=== PATIENT | male | born 1945 | race Caucasian/White ===

== ENCOUNTER 2018-08-27 16:32 | Emergency (ER) | payer OTHER, MEDICAID ==
[~2018-08-27] VITALS: Ht 170.2 cm; Wt 69.6 kg
--- NOTE | 2018-08-27 16:35 | NUR ---
PT AMBULATES TO BED 9
[2018-08-27 16:40] VITALS: BP 178/90
--- NOTE | 2018-08-27 16:52 | NUR ---
Patient being evaluated by physician at bedside.
--- NOTE | 2018-08-27 16:54 | NUR ---
bib with c/o elevated blood pressure with dizziness and nausea today; given a htn pill from urgent care today. BP AT TIME OF TRIAGE 178/90. PT STATES HE DOES NOT FEEL WELL.
[2018-08-27] MEDS ORDERED: ONDANSETRON 4 MG/2 ML VIAL IVP ONE (17:00)
[2018-08-27] MEDS ORDERED: FAMOTIDINE 20 MG/2 ML VIAL IVP ONE (17:00)
[2018-08-27] MEDS ORDERED: cloNIDine 0.1 MG TAB PO ONE (17:00)
[2018-08-27] MEDS ORDERED: LORazepam 1 MG TAB PO ONE (17:00)
[2018-08-27 17:54] LABS: BASOPHILS % (AUTO) 0.4 % (0.0-2.0); EOSINOPHILS # (AUTO) 0.1 K/uL (0-0.4); EOSINOPHILS % (AUTO) 0.8 % (0.0-4.0); HEMATOCRIT 41.4 % (36-52); HEMOGLOBIN 13.7 g/dL (12.0-18.0); LYMPHOCYTES # (AUTO) 1.5 K/uL (2.0-11.5); LYMPHOCYTES % (AUTO) 23.5 % (20.5-51.1); MEAN CORPUSCULAR HEMOGLOBIN 31 pg (27-31); MEAN CORPUSCULAR HGB CONC 33 g/dL (33-37); MONOCYTES # (AUTO) 0.5 K/uL (0.8-1.0); MONOCYTES % (AUTO) 8.3 % (1.7-9.3); NEUTROPHILS # (AUTO) 4.4 K/uL (1.8-7.7); PLATELET COUNT (AUTO) 267 K/uL (140-450); RED BLOOD CELL COUNT(AUTO) 4.45 MIL/uL (4.20-6.10); WHITE BLOOD COUNT (AUTO) 6.5 K/uL (4.8-10.8)
[2018-08-27 18:01] LABS: APPEARANCE,URINE CLEAR (CLEAR); BILIRUBIN,URINE NEGATIVE (NEGATIVE); BLOOD, URINE TRACE-L (NEGATIVE); COLOR,URINE YELLOW (YELLOW); LEUKOCYTE ESTERASE ,URINE NEGATIVE (NEGATIVE); NITRITE, URINE NEGATIVE (NEGATIVE); PH,URINE 7.5 (5.0-9.0); UGLUCOSE NEGATIVE (NEGATIVE)
[2018-08-27 18:04] LABS: RBC,URINE 0-5 (RARE) /HPF (0-5); WBC,URINE NONE SEEN /HPF (0-5)
[2018-08-27 18:13] LABS: ALBUMIN 3.9 g/dL (3.4-5.0); ANION GAP 13.4 (8-16); ASPARTATE AMINOTRANSFERASE 24 U/L (15-37); CARBON DIOXIDE 25.4 mmol/L (21-32); CHLORIDE 103 mmol/L (98-107); CREATININE 0.8 mg/dL (0.7-1.3); GLUCOSE 99 mg/dL (74-106); POTASSIUM 3.8 mmol/L (3.5-5.1); SODIUM SERUM 138 mmol/L (136-145); TOTAL BILIRUBIN 0.7 mg/dL (0.0-1.0); UREA NITROGEN, BLOOD 9 mg/dL (7-18)
[2018-08-27 18:20] LABS: AMYLASE 58 U/L (25-115); LIPASE 194 U/L (73-393)
[2018-08-27 18:50] LABS: PROTHROMBIN TIME 11.1 secs (10.8-13.4)
[2018-08-27 19:10] VITALS: BP 93/48
--- NOTE | 2018-08-27 19:10 | NUR ---
Patient discharged with v/s stable. Written and verbal after care instructions given and explained. Patient alert, oriented and verbalized understanding of instructions. Ambulatory with steady gait. All questions addressed prior to discharge. ID band removed. Patient advised to follow up with PMD. Rx of clonidine given. Patient educated on indication of medication including possible reaction and side effects. Opportunity to ask questions provided and answered.
== END 2018-08-27 19:10 | disposition home or self-care (01) ==
LOC: MED 16:32
DX: I10 Essential (primary) hypertension (principal); G20 Parkinson's disease
CPT/HCPCS: 36415; 71045; 80053; 81001; 82150; 83690; 83880; 84484; 85025; 85610; 85730; 93005; 96374; 96375; 99284; J2405; J3490; Q0092

== ENCOUNTER 2018-11-09 07:36 | Emergency (ER) | payer OTHER, MEDICAID ==
[~2018-11-09] VITALS: Ht 172.7 cm; Wt 68.0 kg
[2018-11-09 07:45] VITALS: BP 164/80
--- NOTE | 2018-11-09 07:54 | NUR ---
PATIENT PRESENTS TO ED WITH ACCOMPANIED BY C/O GENERALIZED WEAKNESS, NAUSEA, AND DIZZINESS X 1 WK DENIES RECENT INJURY, FULL CLEAR SPEECH, AMBULATORY WITH STEADY GAIT, NO FACIAL ASYMMETRY NOTED, DENIES ABDOMINAL PAIN OR DIARRHEA AT THIS TIME. SKIN IS PINK/WARM/DRY; AAOX4 WITH EVEN AND STEADY GAIT; LUNGS CLEAR BL; HR EVEN AND REGULAR; PT DENIES ANY FEVER, CP, SOB, OR COUGH AT THIS TIME; PATIENT STATES PAIN OF 0/10 AT THIS TIME; VSS; PATIENT POSITIONED FOR COMFORT; HOB ELEVATED; BEDRAILS UP X2; BED DOWN. ER MD MADE AWARE OF PT STATUS.
--- NOTE | 2018-11-09 08:06 | NUR ---
CXR AT BEDSIDE
[2018-11-09 08:32] LABS: BASOPHILS % (AUTO) 0.3 % (0.0-2.0); EOSINOPHILS # (AUTO) 0.1 K/uL (0-0.4); EOSINOPHILS % (AUTO) 0.8 % (0.0-4.0); HEMATOCRIT 41.5 % (36-52); LYMPHOCYTES # (AUTO) 1.3 K/uL (2.0-11.5); LYMPHOCYTES % (AUTO) 17.5 % (20.5-51.1); MEAN CORPUSCULAR HEMOGLOBIN 31 pg (27-31); MEAN CORPUSCULAR HGB CONC 34 g/dL (33-37); MEAN CORPUSCULAR VOLUME 93.2 fL (80-94); MONOCYTES # (AUTO) 0.5 K/uL (0.8-1.0); MONOCYTES % (AUTO) 7.3 % (1.7-9.3); NEUTROPHILS # (AUTO) 5.4 K/uL (1.8-7.7); NEUTROPHILS % (AUTO) 74.1 % (42.2-75.2); PLATELET COUNT (AUTO) 257 K/uL (140-450); RED BLOOD CELL COUNT(AUTO) 4.46 MIL/uL (4.20-6.10); WHITE BLOOD COUNT (AUTO) 7.3 K/uL (4.8-10.8)
[2018-11-09 08:50] LABS: APPEARANCE,URINE SL CLOUDY (CLEAR); BILIRUBIN,URINE NEGATIVE (NEGATIVE); BLOOD, URINE TRACE-I (NEGATIVE); COLOR,URINE YELLOW (YELLOW); LEUKOCYTE ESTERASE ,URINE NEGATIVE (NEGATIVE); NITRITE, URINE NEGATIVE (NEGATIVE); PH,URINE 6.5 (5.0-9.0); UGLUCOSE NEGATIVE (NEGATIVE)
[2018-11-09 08:56] LABS: CARBON DIOXIDE 27.6 mmol/L (21-32); CHLORIDE 103 mmol/L (98-107); CREATININE 0.9 mg/dL (0.7-1.3); GLUCOSE 122 mg/dL (74-106); POTASSIUM 3.6 mmol/L (3.5-5.1); SODIUM SERUM 138 mmol/L (136-145); UREA NITROGEN, BLOOD 9 mg/dL (7-18)
[2018-11-09 08:58] LABS: RBC,URINE 0-5 /HPF (0-5); WBC,URINE 0-5 /HPF (0-5)
[2018-11-09] MEDS ORDERED: LORazepam 1 MG TAB PO ONE (09:05)
[2018-11-09 09:12] LABS: ALBUMIN 3.7 g/dL (3.4-5.0); ASPARTATE AMINOTRANSFERASE 25 U/L (15-37); THYROID STIMULATING HORMONE 0.92 uIU/mL (0.34-3.74); TOTAL BILIRUBIN 0.6 mg/dL (0.0-1.0)
[2018-11-09 09:53] VITALS: BP 149/82
== END 2018-11-09 09:58 | disposition home or self-care (01) ==
LOC: MED 07:36
DX: R53.1 Weakness (principal); F41.9 Anxiety disorder, unspecified; F32.9 Major depressive disorder, single episode, unspecified; K21.9 Gastro-esophageal reflux disease without esophagitis; I10 Essential (primary) hypertension; N40.0 Benign prostatic hyperplasia without lower urinary tract symptoms; G20 Parkinson's disease; Z98.890 Other specified postprocedural states
CPT/HCPCS: 36415; 71045; 80053; 81001; 84443; 84484; 85025; 93005; 99284; Q0092

== ENCOUNTER 2019-01-15 21:05 | Emergency (ER) | payer OTHER, MEDICAID ==
[~2019-01-15] VITALS: Ht 170.2 cm; Wt 71.7 kg
[2019-01-15 21:08] VITALS: BP 160/87
--- NOTE | 2019-01-15 21:13 | NUR ---
Pt taken to bed 11. Report given to Amna ROJAS.
--- NOTE | 2019-01-15 21:25 | NUR ---
PT BIB C/O GENERALIZED WEAKNESS X2 DAY. PT STATES HE HASNT BEEN FEELING HIMSELF AND FELT WORSE TODAY. DENIES N/V/D; FREQUENT URINATION PATTERN, PT STATES ~50 TIMES TODAY. PT STATES 0/10 PAIN AT THIS TIME. PT ACTING APPROPRIATLY, SPEAKING IN CLEAR AND COMPLETE SENTENCES. PENDING ER MD JIANG. PMH: PROSTATE SX 05/25
--- NOTE | 2019-01-15 22:26 | NUR ---
EKG PERFORMED AT BEDSIDE
[2019-01-15 22:27] LABS: BASOPHILS % (AUTO) 0.6 % (0.0-2.0); EOSINOPHILS # (AUTO) 0.2 K/uL (0-0.4); EOSINOPHILS % (AUTO) 2.8 % (0.0-4.0); HEMATOCRIT 38.5 % (36-52); HEMOGLOBIN 13.2 g/dL (12.0-18.0); LYMPHOCYTES # (AUTO) 1.7 K/uL (2.0-11.5); LYMPHOCYTES % (AUTO) 23.7 % (20.5-51.1); MEAN CORPUSCULAR HEMOGLOBIN 32 pg (27-31); MEAN CORPUSCULAR HGB CONC 34 g/dL (33-37); MEAN CORPUSCULAR VOLUME 93.5 fL (80-94); MONOCYTES # (AUTO) 0.7 K/uL (0.8-1.0); MONOCYTES % (AUTO) 9.4 % (1.7-9.3); NEUTROPHILS # (AUTO) 4.5 K/uL (1.8-7.7); NEUTROPHILS % (AUTO) 63.5 % (42.2-75.2); PLATELET COUNT (AUTO) 254 K/uL (140-450); RED BLOOD CELL COUNT(AUTO) 4.12 MIL/uL (4.20-6.10); RED CELL DISTRIBUTION WIDTH 13.1 % (11.6-13.7)
[2019-01-15 22:39] LABS: ANION GAP 15.5 (8-16); CARBON DIOXIDE 25.7 mmol/L (21-32); CHLORIDE 105 mmol/L (98-107); CREATININE 0.7 mg/dL (0.7-1.3); GLUCOSE 113 mg/dL (74-106); POTASSIUM 3.2 mmol/L (3.5-5.1); SODIUM SERUM 143 mmol/L (136-145); UREA NITROGEN, BLOOD 16 mg/dL (7-18)
[2019-01-15 22:45] LABS: ALBUMIN 3.5 g/dL (3.4-5.0); ASPARTATE AMINOTRANSFERASE 20 U/L (15-37); MAGNESIUM 2.1 mg/dL (1.8-2.4); TOTAL BILIRUBIN 0.6 mg/dL (0.0-1.0)
--- NOTE | 2019-01-15 23:35 | NUR ---
PT SISTER WOULD LIKE A UPDATE ON PT STATUS. ER AWARE.
--- NOTE | 2019-01-15 23:39 | NUR ---
DR. MARTINEZ AT BEDSIDE SPEAKING W/ PT ABOUT POSSIBLE PLACEMENT.
[2019-01-16 00:52] LABS: APPEARANCE,URINE CLEAR (CLEAR); BILIRUBIN,URINE NEGATIVE (NEGATIVE); BLOOD, URINE NEGATIVE (NEGATIVE); COLOR,URINE YELLOW (YELLOW); LEUKOCYTE ESTERASE ,URINE NEGATIVE (NEGATIVE); NITRITE, URINE NEGATIVE (NEGATIVE); UGLUCOSE NEGATIVE (NEGATIVE)
[2019-01-16] MEDS ORDERED: LORazepam 0.5 MG TAB PO ONE (01:05)
[2019-01-16] MEDS ORDERED: POTASSIUM CHLORIDE 10 MEQ TABER PO ONE (01:25)
--- NOTE | 2019-01-16 01:47 | NUR ---
Patient discharged with v/s stable. Patient acting appropriatly, patient states 0/10 pain at this time and states he is ready to go home. Written and verbal after care instructions given and explained. Patient verbalized understanding. Ambulatory with steady gait. All questions addressed prior to discharge. Advised to follow up with PMD.
[2019-01-16 01:59] VITALS: BP 158/78
== END 2019-01-16 01:59 | disposition home or self-care (01) ==
LOC: MED 21:05
DX: R53.1 Weakness (principal); F41.9 Anxiety disorder, unspecified; E87.6 Hypokalemia; I10 Essential (primary) hypertension; G20 Parkinson's disease
CPT/HCPCS: 36415; 71045; 80053; 81003; 83735; 84484; 85025; 93005; 99284

== ENCOUNTER 2019-01-18 15:16 | Emergency (ER) | payer OTHER, MEDICAID ==
[~2019-01-18] VITALS: Ht 165.1 cm; Wt 70.8 kg
[2019-01-18 15:23] VITALS: BP 153/92
[2019-01-18] MEDS ORDERED: CLON0.2T16 PO (15:30)
[2019-01-18] MEDS ORDERED: ALPR0.5T2 PO (15:30)
--- NOTE | 2019-01-18 15:35 | NUR ---
Note undone in EDM - 01/18/19 at 1610 by MED BIB SELF. AAO X4 C/O GENERALIZED WEAKNESS AND DIZZINESS X 4 DAYS, ANXIETY X 1 MONTH, SOB X 1 MONTH, NAUSEA X 1 MONTH. DENIES CP. DENIES PAIN. PT AA&OX4. BREATHING EVEN AND UNLABORED. EQUAL, CLEAR FADI LUNGS UPON AUSCULTATION. PT WAS SEEN HERE 4 DAYS AGO FOR SAME COMPLAINT. PT STATESS HE HAD LOW POTASSIUM 4 DAYS AGO. PERRLA, BRISK 3 MM. FULL CLEAR SPEECH. EQUAL FADI STRENGTH TO UPPER AND LOWER EXTREMITIES.
--- NOTE | 2019-01-18 15:35 | NUR ---
BIB SELF. AAO X4 C/O GENERALIZED WEAKNESS AND DIZZINESS X 4 DAYS, ANXIETY X 1 MONTH, SOB X 1 MONTH, NAUSEA X 1 MONTH. DENIES CP. DENIES PAIN. PT AA&OX4. BREATHING EVEN AND UNLABORED. EQUAL, CLEAR FADI LUNGS UPON AUSCULTATION. PT WAS SEEN HERE 4 DAYS AGO FOR SAME COMPLAINT. PT STATESS HE HAD LOW POTASSIUM 4 DAYS AGO. PERRLA, BRISK 3 MM. FULL CLEAR SPEECH. EQUAL FADI STRENGTH TO UPPER AND LOWER EXTREMITIES. PT PLACED ON FULL INSTALLER METAL FLOORING. HOB UP. BED SIDE RAILS UP X1. ON LOW BED POSITION, LOCKED. ER MADE AWARE OF PT STATUS.
--- NOTE | 2019-01-18 15:37 | NUR ---
DR WOOD AT BEDSIDE FOR PT EVALUATION
--- NOTE | 2019-01-18 15:45 | NUR ---
POULTRY PICKING MACHINE TENDER AT BEDSIDE
[2019-01-18 16:27] LABS: BASOPHILS # (AUTO) 0.1 K/uL (0.00-0.22); BASOPHILS % (AUTO) 0.9 % (0.0-2.0); EOSINOPHILS # (AUTO) 0.1 K/uL (0-0.4); EOSINOPHILS % (AUTO) 1.3 % (0.0-4.0); HEMATOCRIT 38.8 % (36-52); HEMOGLOBIN 12.8 g/dL (12.0-18.0); LYMPHOCYTES # (AUTO) 1.4 K/uL (2.0-11.5); LYMPHOCYTES % (AUTO) 23.2 % (20.5-51.1); MEAN CORPUSCULAR HEMOGLOBIN 31 pg (27-31); MEAN CORPUSCULAR HGB CONC 33 g/dL (33-37); MEAN CORPUSCULAR VOLUME 93.7 fL (80-94); MONOCYTES # (AUTO) 0.6 K/uL (0.8-1.0); NEUTROPHILS # (AUTO) 4.1 K/uL (1.8-7.7); NEUTROPHILS % (AUTO) 65.6 % (42.2-75.2); PLATELET COUNT (AUTO) 284 K/uL (140-450); RED BLOOD CELL COUNT(AUTO) 4.14 MIL/uL (4.20-6.10); RED CELL DISTRIBUTION WIDTH 13.1 % (11.6-13.7); WHITE BLOOD COUNT (AUTO) 6.2 K/uL (4.8-10.8)
[2019-01-18 16:34] LABS: APPEARANCE,URINE CLEAR (CLEAR); BILIRUBIN,URINE NEGATIVE (NEGATIVE); BLOOD, URINE TRACE-I (NEGATIVE); COLOR,URINE YELLOW (YELLOW); LEUKOCYTE ESTERASE ,URINE NEGATIVE (NEGATIVE); NITRITE, URINE NEGATIVE (NEGATIVE); UGLUCOSE NEGATIVE (NEGATIVE)
[2019-01-18 16:37] LABS: RBC,URINE 0 /HPF (0-5); WBC,URINE 0-5 /HPF (0-5)
[2019-01-18 17:08] LABS: ALBUMIN 3.6 g/dL (3.4-5.0); ASPARTATE AMINOTRANSFERASE 30 U/L (15-37); CARBON DIOXIDE 28.5 mmol/L (21-32); CREATININE 0.7 mg/dL (0.7-1.3); GLUCOSE 98 mg/dL (74-106); TOTAL BILIRUBIN 0.5 mg/dL (0.0-1.0); UREA NITROGEN, BLOOD 18 mg/dL (7-18)
[2019-01-18 17:12] LABS: ANION GAP 12.1 (8-16); CHLORIDE 104 mmol/L (98-107); POTASSIUM 3.6 mmol/L (3.5-5.1); SODIUM SERUM 141 mmol/L (136-145)
[2019-01-18 17:53] VITALS: BP 133/69
== END 2019-01-18 17:53 | disposition home or self-care (01) ==
LOC: MED 15:16
DX: R53.1 Weakness (principal); R42 Dizziness and giddiness; F41.9 Anxiety disorder, unspecified; I10 Essential (primary) hypertension; G20 Parkinson's disease; Z79.899 Other long term (current) drug therapy
CPT/HCPCS: 36415; 71045; 80053; 81001; 85025; 99284; Q0092; 93005

== ENCOUNTER 2019-06-05 12:56 | Emergency (ER) | payer OTHER, MEDICAID ==
[~2019-06-05] VITALS: Ht 167.6 cm; Wt 70.8 kg
[~2019-06-05 12:56] MED LIST: ALPR0.5T2 PO; CLON0.2T16 PO
[2019-06-05 13:04] VITALS: BP 141/92
[2019-06-05 14:09] VITALS: BP 141/92
== END 2019-06-05 14:10 | disposition home or self-care (01) ==
LOC: MED 12:56
DX: H11.32 Conjunctival hemorrhage, left eye (principal); I10 Essential (primary) hypertension; G20 Parkinson's disease; Z79.899 Other long term (current) drug therapy
CPT/HCPCS: 99281

== ENCOUNTER 2019-06-14 06:30 | Emergency (ER) | payer OTHER, MEDICAID ==
[~2019-06-14] VITALS: Ht 175.3 cm; Wt 74.8 kg
--- NOTE | 2019-06-14 06:39 | NUR ---
PT AMBULATED TO ER BED 11
[2019-06-14 06:40] VITALS: BP 152/87
--- NOTE | 2019-06-14 06:40 | NUR ---
74 YO MALE BIB FOR C/O L KNEE AND L HIP PAIN X 1 WEEK. PT DENIES TRAUMA OR FALLS. LIMITED ROM NOTED, AMB WITH STEADY GAIT. PT STATES PAIN 10/10 FROM L HIP RADIATING TO L KNEE. DENIES FEVER CHILLS. DENIES N/V/D. GURNEY LOCKED IN LOWEST POSITION. WILL CONTINUE TO OBSERVE. HX: PARKINSONS, GERD, HTN, ANXIETY MEDS: XANAX, PRAMPEXOLE, CLONIDINE AX: DENIES
[2019-06-14] MEDS ORDERED: KETOROLAC 60 MG/2 ML VIAL IM ONE (06:50)
--- NOTE | 2019-06-14 07:15 | NUR ---
RECEIVED REPORT FROM GLORIA ROJAS
[2019-06-14 07:19] VITALS: BP 152/87
--- NOTE | 2019-06-14 07:19 | NUR ---
Patient discharged BY DR DUNN with v/s stable. Written and verbal after care instructions given and explained. Patient alert, oriented and verbalized understanding of instructions. Ambulatory with steady gait. All questions addressed prior to discharge. ID band removed. Patient advised to follow up with PMD. Rx of NAPROSYN given. Patient educated on indication of medication including possible reaction and side effects. Opportunity to ask questions provided and answered.
== END 2019-06-14 07:19 | disposition home or self-care (01) ==
LOC: MED 06:30
DX: M54.32 Sciatica, left side (principal); K21.9 Gastro-esophageal reflux disease without esophagitis; I10 Essential (primary) hypertension; G20 Parkinson's disease; F41.9 Anxiety disorder, unspecified; Z79.899 Other long term (current) drug therapy
CPT/HCPCS: 96372; 99283; J1885

== ENCOUNTER 2020-01-03 15:34 | Emergency (ER) | payer OTHER, MEDICAID ==
[~2020-01-03] VITALS: Ht 170.2 cm; Wt 63.5 kg
[2020-01-03 15:56] VITALS: BP 107/72
--- NOTE | 2020-01-03 15:56 | NUR ---
74/M WITH CC: GENERALIZED WEAKNESS X 1 MONTH. STATES FATIGUE, POLYURIA X <1 WK. DENIES DYSURIA. DENIES F/C, DENIES CP, OR SOB, DIZZINESS. DENIES PAIN. CONNECTED TO BEDSIDE MONITOR. VSS. AOX4. AMBULATORY WITH SLOW STEADY GAIT. HX---PARKINSON'S, HTN, ANXIETY RX---MYRBETRIQ 25MG QD, LISINOPRIL 20MG QD, ALPRAZOLAM 1MG QD, CARBIDOPA/LEVODOPA 25-100MG QID, MIRAPEX 0.125MG TID, POTASSIUM CHLORIDE 15ML QAM
--- NOTE | 2020-01-03 16:01 | NUR ---
EMT AT BEDSIDE FOR EKG
--- NOTE | 2020-01-03 16:02 | NUR ---
EKG PERFORMED AT BEDSIDE
--- NOTE | 2020-01-03 16:03 | NUR ---
BUILDING EQUIPMENT OPERATOR AT BEDSIDE
[2020-01-03] MEDS ORDERED: POTA10TE30 PO (16:07)
[2020-01-03] MEDS ORDERED: LISI-420 PO (16:07)
[2020-01-03] MEDS ORDERED: CARB1TAB37 PO (16:07)
[2020-01-03] MEDS ORDERED: PRAM0.5T4 PO (16:07)
[2020-01-03] MEDS ORDERED: MIRA25TE PO (16:07)
--- NOTE | 2020-01-03 16:17 | NUR ---
DR BREWSTER EVALUATING PT AT BEDSIDE
[2020-01-03] MEDS ORDERED: NACL 0.9% 1,000 ML IV ONE (16:20)
[2020-01-03 17:02] LABS: BASOPHILS % (AUTO) 0.6 % (0.0-2.0); EOSINOPHILS # (AUTO) 0.2 K/uL (0-0.4); EOSINOPHILS % (AUTO) 2.8 % (0.0-4.0); HEMATOCRIT 38.8 % (36-52); HEMOGLOBIN 12.9 g/dL (12.0-18.0); LYMPHOCYTES # (AUTO) 1.4 K/uL (2.0-11.5); LYMPHOCYTES % (AUTO) 21.7 % (20.5-51.1); MEAN CORPUSCULAR HEMOGLOBIN 32 pg (27-31); MEAN CORPUSCULAR HGB CONC 33 g/dL (33-37); MEAN CORPUSCULAR VOLUME 95.4 fL (80-94); MONOCYTES # (AUTO) 0.6 K/uL (0.8-1.0); MONOCYTES % (AUTO) 9.2 % (1.7-9.3); NEUTROPHILS # (AUTO) 4.3 K/uL (1.8-7.7); NEUTROPHILS % (AUTO) 65.7 % (42.2-75.2); PLATELET COUNT (AUTO) 229 K/uL (140-450); RED BLOOD CELL COUNT(AUTO) 4.07 MIL/uL (4.20-6.10); RED CELL DISTRIBUTION WIDTH 12.8 % (11.6-13.7); WHITE BLOOD COUNT (AUTO) 6.5 K/uL (4.8-10.8)
[2020-01-03 17:28] LABS: PROTHROMBIN TIME 10.4 secs (10.8-13.4)
[2020-01-03 17:31] LABS: ALBUMIN 3.3 g/dL (3.4-5.0); ASPARTATE AMINOTRANSFERASE 22 U/L (15-37); CARBON DIOXIDE 23.5 mmol/L (21-32); CHLORIDE 105 mmol/L (98-107); CREATININE 0.9 mg/dL (0.6-1.3); GLUCOSE 109 mg/dL (74-106); POTASSIUM 3.5 mmol/L (3.5-5.1); SODIUM SERUM 139 mmol/L (136-145); TOTAL BILIRUBIN 0.4 mg/dL (0.0-1.0); UREA NITROGEN, BLOOD 11 mg/dL (7-18)
[2020-01-03 18:04] LABS: APPEARANCE,URINE CLEAR (CLEAR); BILIRUBIN,URINE NEGATIVE (NEGATIVE); BLOOD, URINE NEGATIVE (NEGATIVE); COLOR,URINE YELLOW (YELLOW); LEUKOCYTE ESTERASE ,URINE NEGATIVE (NEGATIVE); NITRITE, URINE NEGATIVE (NEGATIVE); PH,URINE 5.5 (5.0-9.0); UGLUCOSE NEGATIVE (NEGATIVE)
[2020-01-03 18:50] VITALS: BP 150/72
== END 2020-01-03 18:51 | disposition home or self-care (01) ==
LOC: MED 15:34
DX: R53.1 Weakness (principal); R35.0 Frequency of micturition; K21.9 Gastro-esophageal reflux disease without esophagitis; I10 Essential (primary) hypertension; G20 Parkinson's disease; F41.9 Anxiety disorder, unspecified; Z79.899 Other long term (current) drug therapy
CPT/HCPCS: 36415; 71045; 80053; 81003; 84484; 85025; 85610; 93005; 99285; J7030; Q0092

== ENCOUNTER 2020-07-13 21:53 | Emergency (ER) | payer OTHER, MEDICAID ==
[~2020-07-13] VITALS: Ht 170.2 cm; Wt 70.8 kg
[~2020-07-13 21:53] MED LIST changes: +CARB1TAB37 PO; +LISI-420 PO; +MIRA25TE PO; +POTA10TE30 PO; +PRAM0.5T4 PO
[2020-07-13 22:07] VITALS: BP 155/86
--- NOTE | 2020-07-13 22:10 | NUR ---
To ED bed 07
--- NOTE | 2020-07-13 22:20 | NUR ---
75 y/o male c/o dysuria x 4 hours. pt states pain upon urination. denies pain this time. lung sounds clear. abd soft non tender. pmhx: BPH, DM nka
--- NOTE | 2020-07-13 23:00 | NUR ---
DR BERNARD AT BEDSIDE EVALUATING PT
--- NOTE | 2020-07-13 23:15 | NUR ---
LAB AT BEDSIDE
[2020-07-13 23:30] LABS: BASOPHILS % (AUTO) 0.3 % (0.0-2.0); EOSINOPHILS # (AUTO) 0.2 K/uL (0-0.4); EOSINOPHILS % (AUTO) 2.1 % (0.0-4.0); HEMATOCRIT 39.2 % (36-52); LYMPHOCYTES # (AUTO) 1.3 K/uL (2.0-11.5); LYMPHOCYTES % (AUTO) 13.6 % (20.5-51.1); MEAN CORPUSCULAR HEMOGLOBIN 31 pg (27-31); MEAN CORPUSCULAR HGB CONC 33 g/dL (33-37); MEAN CORPUSCULAR VOLUME 93.5 fL (80-94); MONOCYTES # (AUTO) 0.8 K/uL (0.8-1.0); MONOCYTES % (AUTO) 7.8 % (1.7-9.3); NEUTROPHILS # (AUTO) 7.4 K/uL (1.8-7.7); NEUTROPHILS % (AUTO) 76.2 % (42.2-75.2); PLATELET COUNT (AUTO) 262 K/uL (140-450); RED BLOOD CELL COUNT(AUTO) 4.19 MIL/uL (4.20-6.10); RED CELL DISTRIBUTION WIDTH 12.7 % (11.6-13.7); WHITE BLOOD COUNT (AUTO) 9.6 K/uL (4.8-10.8)
[2020-07-13 23:32] LABS: APPEARANCE,URINE CLEAR (CLEAR); BILIRUBIN,URINE NEGATIVE (NEGATIVE); BLOOD, URINE TRACE-L (NEGATIVE); COLOR,URINE YELLOW (YELLOW); LEUKOCYTE ESTERASE ,URINE NEGATIVE (NEGATIVE); NITRITE, URINE NEGATIVE (NEGATIVE); UGLUCOSE NEGATIVE (NEGATIVE)
[2020-07-13 23:41] LABS: RBC,URINE 0-5 /HPF (0-5); WBC,URINE 0-5 /HPF (0-5)
[2020-07-13 23:59] LABS: ALBUMIN 3.5 g/dL (3.4-5.0); ANION GAP 15.9 (8-16); ASPARTATE AMINOTRANSFERASE 18 U/L (15-37); CARBON DIOXIDE 24.6 mmol/L (21-32); CHLORIDE 105 mmol/L (98-107); CREATININE 0.9 mg/dL (0.6-1.3); GLUCOSE 98 mg/dL (74-106); POTASSIUM 3.5 mmol/L (3.5-5.1); SODIUM SERUM 142 mmol/L (136-145); TOTAL BILIRUBIN 0.6 mg/dL (0.0-1.0); UREA NITROGEN, BLOOD 17 mg/dL (7-18)
--- NOTE | 2020-07-14 00:32 | NUR ---
DR BERNARD AT BEDSIDE
[2020-07-14] MEDS ORDERED: KETOROLAC 30 MG/ML VIAL IM ONE (00:40)
--- NOTE | 2020-07-14 00:43 | NUR ---
Francisco alonso in [facility] - 07/14/20 at 0052 by [email or web address] PT TAKEN TO CT VIA W/C
--- NOTE | 2020-07-14 00:43 | NUR ---
PT TAKEN TO CT VIA UCHE
[2020-07-14] MEDS ORDERED: LIDOCAINE 5% 1 EA PATCH TP ONE (01:14)
[2020-07-14] MEDS ORDERED: LIDOCAINE 5% 1 EA PATCH TP SCH ×2 (01:15→09:00)
--- NOTE | 2020-07-14 01:16 | NUR ---
covering for relief for primary RN Kwesi. assumed pt care at this time. VSS.
--- NOTE | 2020-07-14 01:20 | NUR ---
Lidocaine patch applied to Left lower back. tolerated well.
--- NOTE | 2020-07-14 02:50 | NUR ---
# 16 FR Cherry catheter with 10 ml utilizing sterile technique. Immediate return of 125 ml YELLOW urine noted. Bedside drainage bag placed below level of bladder. Urine sample collected and sent to lab. Pt tolerated procedure WELL.
[2020-07-14 03:00] VITALS: BP 158/83
--- NOTE | 2020-07-14 03:00 | NUR ---
Patient discharged with v/s stable. Written and verbal after care instructions given and explained. Patient alert, oriented and verbalized understanding of instructions. Wheel Chair Assisted with to car. All questions addressed prior to discharge. ID band removed. Patient advised to follow up with PMD. Rx of MOTRIN, ACETAMINOPHEN, AND FLOMAX given. Patient educated on indication of medication including possible reaction and side effects. Opportunity to ask questions provided and answered.
== END 2020-07-14 03:00 | disposition home or self-care (01) ==
LOC: MED 21:53
DX: R33.9 Retention of urine, unspecified (principal); N13.30 Unspecified hydronephrosis; N40.1 Benign prostatic hyperplasia with lower urinary tract symptoms; E11.9 Type 2 diabetes mellitus without complications; K21.9 Gastro-esophageal reflux disease without esophagitis; Z79.899 Other long term (current) drug therapy
CPT/HCPCS: 36415; 74176; 80053; 81001; 85025; 96372; 99284; J1885

== ENCOUNTER 2020-10-14 08:22 | Emergency (ER) | payer OTHER, MEDICAID ==
[~2020-10-14] VITALS: Ht 167.6 cm; Wt 64.4 kg
[~2020-10-14 08:22] MED LIST changes: -LISI-420 PO; +LISI20TA29 PO
[2020-10-14 08:29] VITALS: BP 151/89
--- NOTE | 2020-10-14 08:37 | NUR ---
pr ambulated to bed 7 with walker
--- NOTE | 2020-10-14 08:38 | NUR ---
75 Y/O MALE C/O LEFT KNEE AND BACK PAIN X 1 MONTH. PT STATES HE FELL LAST NIGHT ONTO THE COUCH BUT DID NOT HIT HIS HEAD. PT STATES PAIN IS 10/10, NONRADIATING AND IS SHARP AND HOT. PT STATES HE FEELS DIZZY/ LIGHTHEADED AND WEAK SINCE LAST NIGHT. PT TOOK TRAMADOL AND DICLOFENAC SODIUM TOPICAL GEL X2 DAYS AGO WITH NO RELIEF. PT STATED HE HAS 3 HERNIATED DISCS IN LOWER BACK. PT DENIES N/V/SOB/CHEST PAIN. PT IS A&O X4 AND AMBULATED WITH WALKER. PT STATED HE WAKES UP X15 TIMES DURING THE NIGHT TO USE THE RESTROOM. BS ON ADMIT 90 PMH: DM, HTN, BPH, ARTHRITIS, GERD, PARKINSONS NKA
--- NOTE | 2020-10-14 08:45 | NUR ---
DR BERNARD AT BEDSIDE FOR FURTHER EVALUATION
[2020-10-14] MEDS ORDERED: NACL 0.9% 500 ML IV ONE (09:05)
--- NOTE | 2020-10-14 09:15 | NUR ---
PT PROVIDED URINE SAMPLE VIA URINAL AT BEDSIDE. SAMPLE GIVEN TO LAB
--- NOTE | 2020-10-14 09:21 | NUR ---
LAB AND EKG AT BEDSIDE
[2020-10-14 09:39] LABS: BASOPHILS # (AUTO) 0.1 K/uL (0.00-0.22); BASOPHILS % (AUTO) 1.7 % (0.0-2.0); EOSINOPHILS # (AUTO) 0.1 K/uL (0-0.4); EOSINOPHILS % (AUTO) 2.5 % (0.0-4.0); HEMATOCRIT 40.9 % (36-52); HEMOGLOBIN 13.5 g/dL (12.0-18.0); LYMPHOCYTES # (AUTO) 1.1 K/uL (2.0-11.5); LYMPHOCYTES % (AUTO) 18.5 % (20.5-51.1); MEAN CORPUSCULAR HEMOGLOBIN 31 pg (27-31); MEAN CORPUSCULAR HGB CONC 33 g/dL (33-37); MEAN CORPUSCULAR VOLUME 94.8 fL (80-94); MONOCYTES # (AUTO) 0.4 K/uL (0.8-1.0); MONOCYTES % (AUTO) 6.9 % (1.7-9.3); NEUTROPHILS % (AUTO) 70.4 % (42.2-75.2); PLATELET COUNT (AUTO) 264 K/uL (140-450); RED BLOOD CELL COUNT(AUTO) 4.31 MIL/uL (4.20-6.10); RED CELL DISTRIBUTION WIDTH 14.1 % (11.6-13.7); WHITE BLOOD COUNT (AUTO) 5.8 K/uL (4.8-10.8)
[2020-10-14 09:51] LABS: ANION GAP 9.7 (8-16); ASPARTATE AMINOTRANSFERASE 18 U/L (15-37); CARBON DIOXIDE 27.9 mmol/L (21-32); CHLORIDE 105 mmol/L (98-107); CREATININE 0.7 mg/dL (0.6-1.3); GLUCOSE 99 mg/dL (74-106); POTASSIUM 3.6 mmol/L (3.5-5.1); SODIUM SERUM 139 mmol/L (136-145); TOTAL BILIRUBIN 0.7 mg/dL (0.0-1.0); UREA NITROGEN, BLOOD 9 mg/dL (7-18)
[2020-10-14 10:48] VITALS: BP 151/89
--- NOTE | 2020-10-14 10:49 | NUR ---
Patient discharged with v/s stable. Written and verbal after care instructions given and explained. Patient alert, oriented and verbalized understanding of instructions. Wheel Chair Assisted with steady gait. All questions addressed prior to discharge. ID band removed. Patient advised to follow up with PMD. Rx of NITROFURANTOIN 100MG CAP BID PO given. Patient educated on indication of medication including possible reaction and side effects. Opportunity to ask questions provided and answered.
--- NOTE | 2020-10-16 12:34 | NUR ---
LATE ENTRY---Urine culture received from lab. Culture and sensitivity received and shown to Dr. Poe. New Rx for Bactrim DS BID x10 days received. Patient called and given culture results. Spoke with patient to obtain pharmacy preference. New Rx called into [facility] pharmacy off [facility] in [place]. Patient given instructions to discontinue use of Macrobid and start Bactrim today and to complete entire course of abx until none are left. All instructions explained and translated in greek by myself. Pt verbalized understanding. Copy of C&S placed in discrepancy folder.
== END 2020-10-14 10:49 | disposition home or self-care (01) ==
LOC: MED 08:22
DX: N39.0 Urinary tract infection, site not specified (principal); R53.1 Weakness; E11.9 Type 2 diabetes mellitus without complications; K21.9 Gastro-esophageal reflux disease without esophagitis; I10 Essential (primary) hypertension; Z79.899 Other long term (current) drug therapy
CPT/HCPCS: 36415; 80053; 81002; 84484; 85025; 87086; 93005; 96360; 99284; J7030

== ENCOUNTER 2020-12-17 20:34 | Emergency (ER) | payer OTHER, MEDICAID ==
[~2020-12-17] VITALS: Ht 170.2 cm; Wt 63.5 kg
[2020-12-17 21:04] VITALS: BP 148/83
--- NOTE | 2020-12-17 21:07 | NUR ---
TO LOBBY A/W BED VIA W/C
--- NOTE | 2020-12-17 21:41 | NUR ---
PT TAKEN TO BED 10
--- NOTE | 2020-12-17 22:00 | NUR ---
SEEN IN AN URGENT CARE WITH REFERRAL LETTER TO INSERT 16F BARRIOS CATHETER , HES UNABLE TO VOID,STARTED TODAY PMH: HTN, GERD, DM NKA
--- NOTE | 2020-12-17 22:15 | NUR ---
BARRIOS CATHETER FR16 INSERTED. 200 ML UO OBTAINED. HEALTH TEACHING PROVIDED REGARDING BAG DRAINAGE AND BARRIOS CATHETER CARE.
--- NOTE | 2020-12-17 22:37 | NUR ---
Dr. Ruiz examining patient.
--- NOTE | 2020-12-17 23:00 | NUR ---
Patient discharged with v/s stable AND BARRIOS CATHETER FR16 IN PL[address]. Written and verbal after care instructions given and explained. Patient verbalized understanding. Ambulatory with WALKER. All questions addressed prior to discharge. Advised to follow up with PMD.
[2020-12-17 23:02] VITALS: BP 148/83
== END 2020-12-17 23:00 | disposition home or self-care (01) ==
LOC: MED 20:34
DX: R33.9 Retention of urine, unspecified (principal); E11.9 Type 2 diabetes mellitus without complications; I10 Essential (primary) hypertension; K21.9 Gastro-esophageal reflux disease without esophagitis; Z79.899 Other long term (current) drug therapy
CPT/HCPCS: 51702; 81002; 99284

== ENCOUNTER 2020-12-18 06:10 | Emergency (ER) | payer OTHER, MEDICAID ==
[~2020-12-18] VITALS: Ht 170.2 cm; Wt 77.1 kg
[2020-12-18 06:19] VITALS: BP 139/75
--- NOTE | 2020-12-18 06:19 | NUR ---
TO BED WITH HIS WALKER
--- NOTE | 2020-12-18 06:45 | NUR ---
75/M SEEN BY ERMYunior LAST EARLIER AND WAS D/C WITH BARRIOS CATHETER, AND NOW ITS LEAKING PER PT. PT ALSO VERBALIZED NOT FEELING WELL. BARRIOS CATHETER IN PLACE DRAINING WELL. NO S/SX OF LEAK NOTED. UNDERWEAR AND PANTS DRY. VS STABLE. PMH: HTN, GERD, NKA
--- NOTE | 2020-12-18 07:06 | NUR ---
ENDORSED TO DAY SHIFT NURSE FOR CONTINUITY OF CARE
--- NOTE | 2020-12-18 07:08 | NUR ---
RECEIVED REPORT FROM BOB LERNER. TRANSFER OF CARE AT THIS TIME.
--- NOTE | 2020-12-18 07:17 | NUR ---
EMPTIED 100ML CLEAR YELLOW URINE FROM BARRIOS BAG AND REPOSITIONED ON PTS LEG. NO LEAKAGE NOTED.
[2020-12-18 07:46] VITALS: BP 139/75
--- NOTE | 2020-12-18 07:46 | NUR ---
Patient discharged with v/s stable. Written and verbal after care instructions given and explained. Patient verbalized understanding. Wheel Chair Assisted with to car. All questions addressed prior to discharge. Advised to follow up with PMD.
== END 2020-12-18 07:46 | disposition home or self-care (01) ==
LOC: MED 06:10
DX: N40.0 Benign prostatic hyperplasia without lower urinary tract symptoms (principal); E11.9 Type 2 diabetes mellitus without complications; K21.9 Gastro-esophageal reflux disease without esophagitis; I10 Essential (primary) hypertension; Z79.899 Other long term (current) drug therapy
CPT/HCPCS: 99281

== ENCOUNTER 2021-01-26 11:09 | Emergency (ER) | payer OTHER, MEDICAID ==
[~2021-01-26] VITALS: Ht 147.3 cm; Wt 70.3 kg
--- NOTE | 2021-01-26 11:16 | NUR ---
Patient ambulated to bed 3. RN evaluating the patient at bedside.
[2021-01-26 11:21] VITALS: BP 158/76
--- NOTE | 2021-01-26 11:32 | NUR ---
Dr. Hairston is evaluating the patient at bedside.
--- NOTE | 2021-01-26 11:37 | NUR ---
75/M presents to ED with c/o back pain. Patient states he has a history of chronic back pain but pain has been worsening over the last couple months. Patient has an upcoming appointment with a spinal doctor on Thursday but states the pain has become worse. Patient states he has been taking Tylenol at home for pain with minimal relief, patient currently taking medication for a recently dx UTI, denies dysuria or hematuria. Patient states walking makes the pain worse, able to ambulate with a walker.
[2021-01-26] MEDS: HYDROcodone/APAP 5/325 MG 1 TAB TAB PO ONE (11:43)
--- NOTE | 2021-01-26 13:00 | NUR ---
Patient discharged with v/s stable. Written and verbal after care instructions given and explained. Patient verbalized understanding. Ambulatory with to car. All questions addressed prior to discharge. Advised to follow up with PMD.
== END 2021-01-26 13:00 | disposition home or self-care (01) ==
LOC: MED 11:09
DX: M54.5 Low back pain (principal); I10 Essential (primary) hypertension
CPT/HCPCS: 81002; 99283

== ENCOUNTER 2021-02-03 00:55 | Emergency (ER) | payer OTHER, MEDICAID ==
[~2021-02-03] VITALS: Ht 170.2 cm; Wt 63.5 kg
[2021-02-03 01:01] VITALS: BP 156/85
[2021-02-03 03:22] LABS: APPEARANCE,URINE CLOUDY (CLEAR); BILIRUBIN,URINE NEGATIVE (NEGATIVE); BLOOD, URINE TRACE-I (NEGATIVE); COLOR,URINE YELLOW (YELLOW); LEUKOCYTE ESTERASE ,URINE 3+ (NEGATIVE); NITRITE, URINE POSITIVE (NEGATIVE); PH,URINE 7.5 (5.0-9.0); UGLUCOSE NEGATIVE (NEGATIVE)
[2021-02-03 03:38] LABS: BASOPHILS % (AUTO) 0.3 % (0.0-2.0); EOSINOPHILS % (AUTO) 0.4 % (0.0-4.0); HEMATOCRIT 37.9 % (36-52); HEMOGLOBIN 12.8 g/dL (12.0-18.0); LYMPHOCYTES % (AUTO) 14.5 % (20.5-51.1); MEAN CORPUSCULAR HEMOGLOBIN 33 pg (27-31); MEAN CORPUSCULAR HGB CONC 34 g/dL (33-37); MEAN CORPUSCULAR VOLUME 96.8 fL (80-94); MONOCYTES # (AUTO) 0.5 K/uL (0.8-1.0); MONOCYTES % (AUTO) 7.8 % (1.7-9.3); NEUTROPHILS # (AUTO) 5.2 K/uL (1.8-7.7); PLATELET COUNT (AUTO) 284 K/uL (140-450); RED BLOOD CELL COUNT(AUTO) 3.92 MIL/uL (4.20-6.10); RED CELL DISTRIBUTION WIDTH 12.9 % (11.6-13.7); WHITE BLOOD COUNT (AUTO) 6.8 K/uL (4.8-10.8)
[2021-02-03 03:49] LABS: RBC,URINE 0-5 /HPF (0-5)
[2021-02-03 03:50] LABS: WBC,URINE TOO MANY TO COUNT /HPF (0-5)
[2021-02-03] MEDS ORDERED: ONDANSETRON 4 MG/2 ML VIAL IVP ONE (03:50)
[2021-02-03] MEDS ORDERED: NACL 0.9% 1,000 ML IV ONE (03:50)
[2021-02-03 03:56] LABS: PROTHROMBIN TIME 10.3 secs (10.8-13.4)
[2021-02-03 03:58] LABS: ALBUMIN 3.8 g/dL (3.4-5.0); ANION GAP 14.6 (8-16); ASPARTATE AMINOTRANSFERASE 24 U/L (15-37); CARBON DIOXIDE 26.8 mmol/L (21-32); CHLORIDE 96 mmol/L (98-107); CREATININE 0.7 mg/dL (0.6-1.3); GLUCOSE 116 mg/dL (74-106); POTASSIUM 3.4 mmol/L (3.5-5.1); SODIUM SERUM 134 mmol/L (136-145); TOTAL BILIRUBIN 0.9 mg/dL (0.0-1.0); UREA NITROGEN, BLOOD 11 mg/dL (7-18)
[2021-02-03] MEDS ORDERED: cefTRIAXone 1,000 MG VIAL ONE (04:38)
[2021-02-03] MEDS ORDERED: AMOX-1000 PO (06:47)
[2021-02-03 07:26] VITALS: BP 156/85
== END 2021-02-03 07:27 | disposition home or self-care (01) ==
LOC: MED 00:55
DX: N39.0 Urinary tract infection, site not specified (principal); R53.1 Weakness; G20 Parkinson's disease; N40.0 Benign prostatic hyperplasia without lower urinary tract symptoms; E11.9 Type 2 diabetes mellitus without complications; K21.9 Gastro-esophageal reflux disease without esophagitis; I10 Essential (primary) hypertension; F41.9 Anxiety disorder, unspecified; Z79.899 Other long term (current) drug therapy
CPT/HCPCS: 36415; 71045; 80053; 81001; 84484; 85025; 85610; 85730; 86886; 86900; 86901; 87040; 87086; 93005; 96361; 96365; 96375; 99285; J0696; J2405; J7030

== ENCOUNTER 2021-07-08 14:34 | Emergency (ER) | payer OTHER, MEDICAID ==
[~2021-07-08] VITALS: Ht 167.6 cm; Wt 60.8 kg
[~2021-07-08 14:34] MED LIST changes: +AMOX-1000 PO; +POTA10TA70 PO; -POTA10TE30 PO
[2021-07-08 14:48] VITALS: BP 157/78
--- NOTE | 2021-07-08 15:00 | NUR ---
76/M BIB SELF FOR CATHETER REPLACEMENT. PATIENT STATES HE HAD HERNIA REPAIR SURGERY AT [facility] TWO WEEKS AGO AND HAD A BARRIOS INSERTED, STATING HE WANTS HIS BARRIOS CATHETER REPLACED. STATES 5/10 ACHING PAIN AT SURGERY SITE, REPORTS INTERMITTENT EPISODES OF NAUSEA AND VOMITING, DENIES CP, SOB, FEVER OR CHILLS.
[2021-07-08] MEDS ORDERED: ONDANSETRON 4 MG ODT PO ONE (15:30)
[2021-07-08] MEDS ORDERED: LORazepam 1 MG TAB PO ONE (15:30)
[2021-07-08 16:06] LABS: BASOPHILS % (AUTO) 0.4 % (0.0-2.0); EOSINOPHILS # (AUTO) 0.1 K/uL (0-0.4); EOSINOPHILS % (AUTO) 1.7 % (0.0-4.0); HEMATOCRIT 33.6 % (36-52); HEMOGLOBIN 11.4 g/dL (12.0-18.0); LYMPHOCYTES # (AUTO) 0.8 K/uL (2.0-11.5); LYMPHOCYTES % (AUTO) 10.5 % (20.5-51.1); MEAN CORPUSCULAR HEMOGLOBIN 32 pg (27-31); MEAN CORPUSCULAR HGB CONC 34 g/dL (33-37); MEAN CORPUSCULAR VOLUME 94.5 fL (80-94); MONOCYTES # (AUTO) 0.8 K/uL (0.8-1.0); MONOCYTES % (AUTO) 11.3 % (1.7-9.3); NEUTROPHILS # (AUTO) 5.5 K/uL (1.8-7.7); NEUTROPHILS % (AUTO) 76.1 % (42.2-75.2); PLATELET COUNT (AUTO) 285 K/uL (140-450); RED BLOOD CELL COUNT(AUTO) 3.55 MIL/uL (4.20-6.10); RED CELL DISTRIBUTION WIDTH 13.2 % (11.6-13.7); WHITE BLOOD COUNT (AUTO) 7.2 K/uL (4.8-10.8)
[2021-07-08 16:15] LABS: ANION GAP 12.7 (8-16); CARBON DIOXIDE 25.3 mmol/L (21-32); CHLORIDE 98 mmol/L (98-107); CREATININE 0.8 mg/dL (0.6-1.3); GLUCOSE 105 mg/dL (74-106); SODIUM SERUM 132 mmol/L (136-145); UREA NITROGEN, BLOOD 16 mg/dL (7-18)
[2021-07-08] MEDS ORDERED: NACL 0.9% 1,000 ML IV ONE (16:25)
[2021-07-08] MEDS ORDERED: ATA25 PO (16:27)
[2021-07-08] MEDS ORDERED: ONDA8TAB87 PO (16:27)
[2021-07-08 17:57] VITALS: BP 136/57
--- NOTE | 2021-07-08 18:00 | NUR ---
Patient discharged with v/s stable. Written and verbal after care instructions ABOUT GENERALIZED ANXIETY DISORDER AND WEAKNESS given and explained. Patient alert, oriented and verbalized understanding of instructions. Wheel Chair Assisted with to car. All questions addressed prior to discharge. ID band removed. Patient advised to follow up with PMD. Rx of ATARAX HCL AND ZOFRAN given. Patient educated on indication of medication including possible reaction and side effects. Opportunity to ask questions provided and answered.
== END 2021-07-08 18:00 | disposition home or self-care (01) ==
LOC: MED 14:34
DX: R53.1 Weakness (principal); F41.9 Anxiety disorder, unspecified; Z46.6 Encounter for fitting and adjustment of urinary device; R11.2 Nausea with vomiting, unspecified; E11.9 Type 2 diabetes mellitus without complications; K21.9 Gastro-esophageal reflux disease without esophagitis; I10 Essential (primary) hypertension; Z98.890 Other specified postprocedural states; Z79.899 Other long term (current) drug therapy; Z79.2 Long term (current) use of antibiotics
CPT/HCPCS: 36415; 51702; 80048; 85025; 96360; 99285; Q0162; 81002; J7030

== ENCOUNTER 2021-09-08 06:36 | Emergency (ER) | payer OTHER, MEDICAID ==
[~2021-09-08] VITALS: Ht 170.2 cm; Wt 69.4 kg
[~2021-09-08 06:36] MED LIST changes: +ATA25 PO; +ONDA8TAB87 PO
[2021-09-08 07:26] VITALS: BP 159/85
--- NOTE | 2021-09-08 07:32 | NUR ---
SENT TO LOBBY TO AWAIT AVAILABLE BED
[2021-09-08 09:20] LABS: BASOPHILS % (AUTO) 0.3 % (0.0-2.0); EOSINOPHILS # (AUTO) 0.2 K/uL (0-0.4); EOSINOPHILS % (AUTO) 2.9 % (0.0-4.0); HEMATOCRIT 37.4 % (36-52); HEMOGLOBIN 12.7 g/dL (12.0-18.0); LYMPHOCYTES # (AUTO) 1.6 K/uL (2.0-11.5); LYMPHOCYTES % (AUTO) 18.8 % (20.5-51.1); MEAN CORPUSCULAR HEMOGLOBIN 31 pg (27-31); MEAN CORPUSCULAR HGB CONC 34 g/dL (33-37); MEAN CORPUSCULAR VOLUME 92.1 fL (80-94); MONOCYTES # (AUTO) 0.7 K/uL (0.8-1.0); PLATELET COUNT (AUTO) 321 K/uL (140-450); RED BLOOD CELL COUNT(AUTO) 4.06 MIL/uL (4.20-6.10); RED CELL DISTRIBUTION WIDTH 12.6 % (11.6-13.7); WHITE BLOOD COUNT (AUTO) 8.5 K/uL (4.8-10.8)
[2021-09-08 09:39] LABS: ANION GAP 14.3 (8-16); CARBON DIOXIDE 23.5 mmol/L (21-32); CHLORIDE 101 mmol/L (98-107); CREATININE 0.7 mg/dL (0.6-1.3); GLUCOSE 118 mg/dL (74-106); POTASSIUM 3.8 mmol/L (3.5-5.1); SODIUM SERUM 135 mmol/L (136-145); UREA NITROGEN, BLOOD 10 mg/dL (7-18)
[2021-09-08 11:40] LABS: BILIRUBIN,DIRECT 0.2 mg/dL (0.0-0.3); TOTAL BILIRUBIN 0.9 mg/dL (0.0-1.0)
[2021-09-08 11:41] LABS: ALBUMIN 3.8 g/dL (3.4-5.0)
[2021-09-08 15:44] VITALS: BP 154/79
--- NOTE | 2021-09-08 15:44 | NUR ---
Patient discharged with v/s stable. Written and verbal after care instructions ABOUT INSOMNIA AND INDWELLING CATHETER CARE given and explained. Patient verbalized understanding. Ambulatory with steady gait. All questions addressed prior to discharge. Advised to follow up with PMD.
== END 2021-09-08 15:44 | disposition home or self-care (01) ==
LOC: MED 06:36
DX: R53.1 Weakness (principal); G47.00 Insomnia, unspecified; R10.84 Generalized abdominal pain; E11.9 Type 2 diabetes mellitus without complications; K21.9 Gastro-esophageal reflux disease without esophagitis; I10 Essential (primary) hypertension; Z79.899 Other long term (current) drug therapy
CPT/HCPCS: 36415; 71045; 72192; 74150; 80048; 80076; 81002; 83690; 84484; 85025; 93005; 99285

== ENCOUNTER 2021-09-22 08:14 | Emergency (ER) | payer OTHER, MEDICAID ==
[~2021-09-22] VITALS: Ht 170.2 cm; Wt 68.9 kg
[2021-09-22 08:25] VITALS: BP 173/97
[2021-09-22] MEDS ORDERED: LORazepam 0.5 MG TAB PO ONE (08:45)
--- NOTE | 2021-09-22 10:06 | NUR ---
Patient discharged with v/s stable. Written and verbal after care instructions ABOUT UTI AND ACUTE URINARY RETENTION given and explained. Patient verbalized understanding. Wheel Chair Assisted with to car. All questions addressed prior to discharge. Advised to follow up with PMD.
[2021-09-22 15:40] LABS: BILIRUBIN,URINE NEGATIVE (NEGATIVE); BLOOD, URINE 3+ (NEGATIVE); COLOR,URINE YELLOW (YELLOW); LEUKOCYTE ESTERASE ,URINE 2+ (NEGATIVE); NITRITE, URINE NEGATIVE (NEGATIVE); PH,URINE 6.5 (5.0-9.0); UGLUCOSE NEGATIVE (NEGATIVE)
[2021-09-22 15:45] LABS: APPEARANCE,URINE HAZY (CLEAR)
[2021-09-22 16:16] LABS: RBC,URINE TOO NUMEROUS TO COUN /HPF (0-5)
== END 2021-09-22 10:06 | disposition home or self-care (01) ==
LOC: MED 08:14
DX: R33.9 Retention of urine, unspecified (principal); N39.0 Urinary tract infection, site not specified; E11.9 Type 2 diabetes mellitus without complications; I10 Essential (primary) hypertension; K21.9 Gastro-esophageal reflux disease without esophagitis; Z79.899 Other long term (current) drug therapy
CPT/HCPCS: 51702; 81001; 87086; 99284

== ENCOUNTER 2021-11-02 13:45 | Emergency (ER) | payer OTHER, MEDICAID ==
[~2021-11-02] VITALS: Ht 167.6 cm; Wt 66.2 kg
[2021-11-02 13:50] VITALS: BP 163/101
--- NOTE | 2021-11-02 14:10 | NUR ---
PT AMBULATED WITH WALKER TO ER BED 8.
--- NOTE | 2021-11-02 14:15 | NUR ---
76 Y/O M PRESENTS TO ED WITH FULL BODY ACHES, WEAKNESS, AND ANXIETY. PT STATES WOKE UP THIS MORNING WITH S/S, WORSENED WITH ACTIVITY. DENIES N/V/D; SKIN IS PINK/WARM/DRY; AAOX4 AMBULATES WITH WALKER; LUNGS CLEAR BL; HR EVEN AND REGULAR; 100.1 F IN TRIAGE. PT DENIES CP, SOB, OR COUGH AT THIS TIME; PATIENT STATES PAIN OF 7/10 AT THIS TIME; VSS; PATIENT POSITIONED FOR COMFORT; HOB ELEVATED; BEDRAILS UP X2; BED DOWN. ER MD MADE AWARE OF PT STATUS. PMH: HTN, PARKINSONS, PROSTATE SX, L ABD HERNIA SX. MEDS: PROSCAR, PRAMIPEXOLE, DOCUSATE SODIUM, LISINOPRIL, CARBIDOPA-LEVODOPA, HYDROXYZINE, OXYBUTYNIN, FERROUS SULFATE.
--- NOTE | 2021-11-02 14:36 | NUR ---
SEEN AND EXAMINED BY DR BUENROSTRO.
[2021-11-02] MEDS ORDERED: ACETAMINOPHEN EXTRA STRENGTH 500 MG TAB PO ONE (14:50)
[2021-11-02 15:47] LABS: BASOPHILS # (AUTO) 0.1 K/uL (0.00-0.22); BASOPHILS % (AUTO) 1.6 % (0.0-2.0); EOSINOPHILS # (AUTO) 0.1 K/uL (0-0.4); HEMATOCRIT 36.7 % (36-52); HEMOGLOBIN 12.3 g/dL (12.0-18.0); LYMPHOCYTES # (AUTO) 1.4 K/uL (2.0-11.5); LYMPHOCYTES % (AUTO) 19.8 % (20.5-51.1); MEAN CORPUSCULAR HEMOGLOBIN 31 pg (27-31); MEAN CORPUSCULAR HGB CONC 34 g/dL (33-37); MEAN CORPUSCULAR VOLUME 92.4 fL (80-94); MONOCYTES # (AUTO) 0.5 K/uL (0.8-1.0); MONOCYTES % (AUTO) 6.3 % (1.7-9.3); NEUTROPHILS % (AUTO) 70.3 % (42.2-75.2); PLATELET COUNT (AUTO) 264 K/uL (140-450); RED BLOOD CELL COUNT(AUTO) 3.97 MIL/uL (4.20-6.10); RED CELL DISTRIBUTION WIDTH 13.8 % (11.6-13.7); WHITE BLOOD COUNT (AUTO) 7.2 K/uL (4.8-10.8)
[2021-11-02 16:25] LABS: ALBUMIN 3.6 g/dL (3.4-5.0); ANION GAP 13.2 (8-16); ASPARTATE AMINOTRANSFERASE 14 U/L (15-37); CARBON DIOXIDE 24.4 mmol/L (21-32); CHLORIDE 105 mmol/L (98-107); CREATININE 0.7 mg/dL (0.6-1.3); FREE T4 (FREE THYROXINE) 0.86 ng/dL (0.76-1.46); GLUCOSE 140 mg/dL (74-106); POTASSIUM 3.6 mmol/L (3.5-5.1); SODIUM SERUM 139 mmol/L (136-145); THYROID STIMULATING HORMONE 0.77 uIU/mL (0.34-3.74); TOTAL BILIRUBIN 0.4 mg/dL (0.0-1.0); UREA NITROGEN, BLOOD 15 mg/dL (7-18)
[2021-11-02] MEDS ORDERED: LORazepam 0.5 MG TAB PO ONE (16:25)
[2021-11-02 17:48] VITALS: BP 140/69
--- NOTE | 2021-11-02 17:49 | NUR ---
Patient discharged with v/s stable. Written and verbal after care instructions given and explained. Patient verbalized understanding. Ambulatory with steady gait ASSIST BY WALKER. All questions addressed prior to discharge. Advised to follow up with PMD.
== END 2021-11-02 17:49 | disposition home or self-care (01) ==
LOC: MED 13:45
DX: F41.9 Anxiety disorder, unspecified (principal); R53.1 Weakness; G47.00 Insomnia, unspecified; I10 Essential (primary) hypertension; G20 Parkinson's disease; Z79.899 Other long term (current) drug therapy; Z98.890 Other specified postprocedural states
CPT/HCPCS: 36415; 71045; 80053; 81002; 84439; 84443; 85025; 93005; 99285

== ENCOUNTER 2021-11-25 13:06 | Inpatient (IN) | payer OTHER, MEDICAID, SELFPAY ==
[~2021-11-25] VITALS: Ht 167.6 cm; Wt 68.0 kg
[2021-11-25 13:18] VITALS: BP 157/87
[2021-11-25 14:56] LABS: APPEARANCE,URINE HAZY (CLEAR); BILIRUBIN,URINE NEGATIVE (NEGATIVE); BLOOD, URINE 2+ (NEGATIVE); COLOR,URINE YELLOW (YELLOW); LEUKOCYTE ESTERASE ,URINE 1+ (NEGATIVE); NITRITE, URINE NEGATIVE (NEGATIVE); UGLUCOSE NEGATIVE (NEGATIVE)
[2021-11-25 15:09] LABS: RBC,URINE 0-5 /HPF (0-5); WBC,URINE 20-60 /HPF (0-5)
[2021-11-25] MEDS ORDERED: cefTRIAXone 1,000 MG VIAL ONE (16:09)
[2021-11-25 16:13] LABS: BASOPHILS % (AUTO) 0.5 % (0.0-2.0); EOSINOPHILS # (AUTO) 0.1 K/uL (0-0.4); EOSINOPHILS % (AUTO) 2.2 % (0.0-4.0); HEMATOCRIT 38.1 % (36-52); HEMOGLOBIN 12.7 g/dL (12.0-18.0); LYMPHOCYTES # (AUTO) 1.5 K/uL (2.0-11.5); MEAN CORPUSCULAR HEMOGLOBIN 31 pg (27-31); MEAN CORPUSCULAR HGB CONC 33 g/dL (33-37); MEAN CORPUSCULAR VOLUME 93.1 fL (80-94); MONOCYTES # (AUTO) 0.6 K/uL (0.8-1.0); MONOCYTES % (AUTO) 8.7 % (1.7-9.3); NEUTROPHILS # (AUTO) 4.2 K/uL (1.8-7.7); NEUTROPHILS % (AUTO) 65.6 % (42.2-75.2); PLATELET COUNT (AUTO) 295 K/uL (140-450); RED BLOOD CELL COUNT(AUTO) 4.09 MIL/uL (4.20-6.10); RED CELL DISTRIBUTION WIDTH 14.1 % (11.6-13.7); WHITE BLOOD COUNT (AUTO) 6.3 K/uL (4.8-10.8)
[2021-11-25 16:41] LABS: ALBUMIN 3.6 g/dL (3.4-5.0); ANION GAP 14.7 (8-16); ASPARTATE AMINOTRANSFERASE 15 U/L (15-37); CARBON DIOXIDE 23.8 mmol/L (21-32); CHLORIDE 105 mmol/L (98-107); CREATININE 0.7 mg/dL (0.6-1.3); GLUCOSE 82 mg/dL (74-106); POTASSIUM 3.5 mmol/L (3.5-5.1); SODIUM SERUM 140 mmol/L (136-145); TOTAL BILIRUBIN 0.4 mg/dL (0.0-1.0); UREA NITROGEN, BLOOD 12 mg/dL (7-18)
[2021-11-25] MEDS ORDERED: LORazepam 0.5 MG TAB PO ONE (19:00)
[2021-11-26] MEDS ORDERED: AZITHROMYCIN 500 MG INJ VIAL IV ONE (01:45)
[2021-11-26] MEDS: NACL 0.9% 1,000 ML IV SCH ×2 (02:07→18:13)
[2021-11-26] MEDS: AZITHROMYCIN 500 MG in DEXTROSE 5% 250 ML IV SCH (02:07)
[2021-11-26 04:00] VITALS: BP 132/72
[2021-11-26] MEDS ORDERED: LORazepam 2 MG/ML VIAL IVP PRN (06:15)
[2021-11-26 08:00] VITALS: BP 142/77
[2021-11-26 08:55] LABS: BASOPHILS % (AUTO) 0.5 % (0.0-2.0); EOSINOPHILS # (AUTO) 0.3 K/uL (0-0.4); EOSINOPHILS % (AUTO) 4.9 % (0.0-4.0); HEMATOCRIT 39.2 % (36-52); HEMOGLOBIN 13.1 g/dL (12.0-18.0); LYMPHOCYTES # (AUTO) 1.7 K/uL (2.0-11.5); LYMPHOCYTES % (AUTO) 27.6 % (20.5-51.1); MEAN CORPUSCULAR HEMOGLOBIN 31 pg (27-31); MEAN CORPUSCULAR HGB CONC 33 g/dL (33-37); MEAN CORPUSCULAR VOLUME 92.6 fL (80-94); MONOCYTES # (AUTO) 0.5 K/uL (0.8-1.0); MONOCYTES % (AUTO) 8.8 % (1.7-9.3); NEUTROPHILS # (AUTO) 3.5 K/uL (1.8-7.7); NEUTROPHILS % (AUTO) 58.2 % (42.2-75.2); PLATELET COUNT (AUTO) 301 K/uL (140-450); RED BLOOD CELL COUNT(AUTO) 4.23 MIL/uL (4.20-6.10); RED CELL DISTRIBUTION WIDTH 13.9 % (11.6-13.7); WHITE BLOOD COUNT (AUTO) 6.1 K/uL (4.8-10.8)
[2021-11-26 09:11] LABS: ANION GAP 12.5 (8-16); CARBON DIOXIDE 24.1 mmol/L (21-32); CHLORIDE 107 mmol/L (98-107); CREATININE 0.7 mg/dL (0.6-1.3); GLUCOSE 95 mg/dL (74-106); POTASSIUM 3.6 mmol/L (3.5-5.1); SODIUM SERUM 140 mmol/L (136-145); UREA NITROGEN, BLOOD 13 mg/dL (7-18)
[2021-11-26] MEDS ORDERED: HYDROXYZINE HYDROCHLORIDE 25 MG TAB PO PRN (11:35)
[2021-11-26] MEDS ORDERED: ALPRAZolam 0.5 MG TAB PO SCH (11:35)
[2021-11-26] MEDS: CARBIDOPA/LEVODOPA 25/100 MG 1 TAB PO SCH ×3 (12:51→20:55)
[2021-11-26] MEDS: PRAMIPEXOLE 0.5 MG TAB PO SCH ×2 (12:54→16:45)
[2021-11-26] MEDS ORDERED: LORazepam 0.5 MG TAB PO PRN (12:55)
[2021-11-26] MEDS ORDERED: ONDANSETRON 4 MG/2 ML VIAL IM/IVP PRN (13:35)
[2021-11-26] MEDS ORDERED: DOCUSATE SODIUM 100 MG GELCAP PO PRN (13:35)
[2021-11-26] MEDS ORDERED: MAG SULF 2000 MG/WATER PREMIX 50 ML IV PRN (13:35)
[2021-11-26] MEDS ORDERED: HYDROcodone/APAP 5/325 MG 1 TAB TAB PO PRN (13:35)
[2021-11-26] MEDS ORDERED: LORazepam 2 MG/ML VIAL IM/IVP PRN (13:35)
[2021-11-26] MEDS ORDERED: POTASSIUM CHLORIDE 10 MEQ TABER PO PRN (13:35)
[2021-11-26] MEDS ORDERED: MORPHINE SULFATE 2 MG/ML SYR IVP PRN (13:35)
[2021-11-26] MEDS ORDERED: ZOLPIDEM 5 MG TAB PO PRN (13:35)
[2021-11-26] MEDS ORDERED: ACETAMINOPHEN 325 MG TAB PO PRN (13:35)
[2021-11-26 14:06] LABS: THYROID STIMULATING HORMONE 1.34 uIU/mL (0.34-3.74)
[2021-11-26 14:55] LABS: PROTHROMBIN TIME 10.4 secs (10.8-13.4)
[2021-11-26 16:00] VITALS: BP 146/72
[2021-11-26 21:37] LABS: BARBITURATE, URINE NEGATIVE ng/ml (NEG <=200); BENZODIAZEPINE, URINE NEGATIVE ng/mL (NEG <=200); CANNABINOID, URINE NEGATIVE ng/mL (NEG <=50); COCAINE, URINE NEGATIVE ng/mL (NEG <=300); OPIATE, URINE NEGATIVE ng/mL (NEG <=2000); PHENCYCLIDINE SCREEN,URINE NEGATIVE ng/mL (NEG <=25)
[2021-11-27] VITALS: BP 139/79
[2021-11-27] MEDS: AZITHROMYCIN 500 MG in DEXTROSE 5% 250 ML IV SCH (01:24)
[2021-11-27 06:08] LABS: BASOPHILS % (AUTO) 0.7 % (0.0-2.0); EOSINOPHILS # (AUTO) 0.4 K/uL (0-0.4); EOSINOPHILS % (AUTO) 6.8 % (0.0-4.0); HEMATOCRIT 35.5 % (36-52); HEMOGLOBIN 11.9 g/dL (12.0-18.0); LYMPHOCYTES # (AUTO) 1.4 K/uL (2.0-11.5); LYMPHOCYTES % (AUTO) 21.3 % (20.5-51.1); MEAN CORPUSCULAR HEMOGLOBIN 31 pg (27-31); MEAN CORPUSCULAR HGB CONC 34 g/dL (33-37); MEAN CORPUSCULAR VOLUME 92.4 fL (80-94); MONOCYTES # (AUTO) 0.6 K/uL (0.8-1.0); MONOCYTES % (AUTO) 9.7 % (1.7-9.3); NEUTROPHILS % (AUTO) 61.5 % (42.2-75.2); PLATELET COUNT (AUTO) 253 K/uL (140-450); RED BLOOD CELL COUNT(AUTO) 3.84 MIL/uL (4.20-6.10); RED CELL DISTRIBUTION WIDTH 13.8 % (11.6-13.7); WHITE BLOOD COUNT (AUTO) 6.5 K/uL (4.8-10.8)
[2021-11-27 07:08] LABS: T4 (THYROXINE) 5.9 ug/dL (4.5-12.0)
[2021-11-27 07:19] LABS: ANION GAP 11.5 (8-16); CARBON DIOXIDE 23.3 mmol/L (21-32); CHLORIDE 109 mmol/L (98-107); CREATININE 0.8 mg/dL (0.6-1.3); POTASSIUM 3.8 mmol/L (3.5-5.1); SODIUM SERUM 140 mmol/L (136-145); UREA NITROGEN, BLOOD 18 mg/dL (7-18)
[2021-11-27 07:34] LABS: MAGNESIUM 1.9 mg/dL (1.8-2.4); PHOSPHORUS 3.4 mg/dL (2.5-4.9)
[2021-11-27 08:00] VITALS: BP 137/73
[2021-11-27 08:00] LABS: CHOL/HDL RATIO 2.8 (1-4.5)
[2021-11-27] MEDS ORDERED: NON-FORMULARY ITEM (Mirabegron (Myrbetriq) 25 MG) PO SCH (09:00)
[2021-11-27] MEDS: OXYBUTYNIN 5 MG TAB PO SCH (09:15)
[2021-11-27] MEDS: lisinopriL 20 MG TAB PO SCH (09:15)
[2021-11-27] MEDS: CLONIDINE HYDROCHLORIDE 0.1 MG TAB PO SCH (09:18)
[2021-11-27] MEDS: POTASSIUM CHLORIDE 10 MEQ TABER PO SCH (09:19)
[2021-11-27] MEDS: CARBIDOPA/LEVODOPA 25/100 MG 1 TAB PO SCH ×4 (09:19→20:14)
[2021-11-27] MEDS: PRAMIPEXOLE 0.5 MG TAB PO SCH ×3 (09:19→17:59)
[2021-11-27] MEDS: NACL 0.9% 1,000 ML IV SCH (10:37)
[2021-11-27 16:00] VITALS: BP 115/63
[2021-11-27 20:00] VITALS: BP 126/71
[2021-11-28] MEDS: AZITHROMYCIN 500 MG in DEXTROSE 5% 250 ML IV SCH (01:30)
[2021-11-28] MEDS: NACL 0.9% 1,000 ML IV SCH (03:43)
[2021-11-28 04:00] VITALS: BP 127/72
[2021-11-28 06:28] LABS: BASOPHILS % (AUTO) 0.3 % (0.0-2.0); EOSINOPHILS # (AUTO) 0.5 K/uL (0-0.4); EOSINOPHILS % (AUTO) 8.5 % (0.0-4.0); HEMATOCRIT 37.7 % (36-52); HEMOGLOBIN 12.3 g/dL (12.0-18.0); LYMPHOCYTES # (AUTO) 1.7 K/uL (2.0-11.5); LYMPHOCYTES % (AUTO) 29.2 % (20.5-51.1); MEAN CORPUSCULAR HEMOGLOBIN 31 pg (27-31); MEAN CORPUSCULAR HGB CONC 33 g/dL (33-37); MEAN CORPUSCULAR VOLUME 93.3 fL (80-94); MONOCYTES # (AUTO) 0.5 K/uL (0.8-1.0); MONOCYTES % (AUTO) 9.2 % (1.7-9.3); NEUTROPHILS # (AUTO) 3.1 K/uL (1.8-7.7); NEUTROPHILS % (AUTO) 52.8 % (42.2-75.2); PLATELET COUNT (AUTO) 264 K/uL (140-450); RED BLOOD CELL COUNT(AUTO) 4.04 MIL/uL (4.20-6.10); RED CELL DISTRIBUTION WIDTH 13.9 % (11.6-13.7); WHITE BLOOD COUNT (AUTO) 5.9 K/uL (4.8-10.8)
[2021-11-28 06:34] LABS: ANION GAP 11.4 (8-16); CARBON DIOXIDE 25.7 mmol/L (21-32); CHLORIDE 107 mmol/L (98-107); CREATININE 0.7 mg/dL (0.6-1.3); GLUCOSE 96 mg/dL (74-106); POTASSIUM 4.1 mmol/L (3.5-5.1); SODIUM SERUM 140 mmol/L (136-145); UREA NITROGEN, BLOOD 17 mg/dL (7-18)
[2021-11-28 07:34] LABS: MAGNESIUM 2.1 mg/dL (1.8-2.4); PHOSPHORUS 3.4 mg/dL (2.5-4.9)
[2021-11-28 08:00] VITALS: BP 150/81
[2021-11-28] MEDS: OXYBUTYNIN 5 MG TAB PO SCH (08:24)
[2021-11-28] MEDS: CARBIDOPA/LEVODOPA 25/100 MG 1 TAB PO SCH ×3 (08:24→16:38)
[2021-11-28] MEDS: PRAMIPEXOLE 0.5 MG TAB PO SCH ×3 (08:26→16:38)
[2021-11-28] MEDS: POTASSIUM CHLORIDE 10 MEQ TABER PO SCH (08:27)
[2021-11-28] MEDS: CLONIDINE HYDROCHLORIDE 0.1 MG TAB PO SCH (08:27)
[2021-11-28] MEDS: lisinopriL 20 MG TAB PO SCH (08:27)
[2021-11-28] MEDS ORDERED: CEPH-588 PO (10:03)
[2021-11-28] MEDS ORDERED: AZIT250T3 PO (10:03)
[2021-11-28 16:00] VITALS: BP 122/68
== END 2021-11-28 19:45 | disposition home or self-care (01) | DRG 542 ==
LOC: MED 13:06 → MTU 20:37 → INTOOBSV 20:37 → UNDOADMOB 20:37 → MMU 21:27 → MTU 21:27
DX: M48.56XA Collapsed vertebra, not elsewhere classified, lumbar region, initial encounter for fracture (principal); J18.9 Pneumonia, unspecified organism; N39.0 Urinary tract infection, site not specified; N40.0 Benign prostatic hyperplasia without lower urinary tract symptoms; F41.9 Anxiety disorder, unspecified; G20 Parkinson's disease; I10 Essential (primary) hypertension; Z20.822 Contact with and (suspected) exposure to COVID-19
CPT/HCPCS: 36415; 70450; 71045; 72131; 80048; 80053; 80305; 81001; 82150; 83036; 83690; 83735; 83880; 84100; 84436; 84443; 84484; 85025; 85610; 85730; 86886; 86900; 86901; 87081; 87086; 93005; 96365; 97112; 97116; 97163-GP; 97530; 99285; J0456; J0696; J1644; J2060; J7060; Q9967

== ENCOUNTER 2021-12-25 09:26 | Emergency (ER) | payer OTHER, MEDICAID ==
[~2021-12-25] VITALS: Ht 167.6 cm; Wt 62.1 kg
[~2021-12-25 09:26] MED LIST changes: -ALPR0.5T2 PO; -AMOX-1000 PO; +AZIT250T3 PO; +CEPH-588 PO; -ONDA8TAB87 PO; -POTA10TA70 PO
[2021-12-25 09:41] VITALS: BP 159/77
--- NOTE | 2021-12-25 09:48 | NUR ---
PT AMBULATED TO BED 10 WITH WALKER
--- NOTE | 2021-12-25 09:53 | NUR ---
76 Y/O MALE C/O URINARY RETENTION AND FREQUENCY/ PT STATES THAT HE TRIES TO PEE BUT ONLY A LITTLE AMOUNT COMES OUT, TRIES TO PEE 30X IN A DAY FOR [id number]. DENIES PAIN DURING URINATION, DENIES FEVER/CHILLS. DENIES N/V/D. PAIN /10 IN THE HIPS PMH: HTN, ANXIETY, PARKINSONS NKA
[2021-12-25 10:37] LABS: BASOPHILS % (AUTO) 0.6 % (0.0-2.0); EOSINOPHILS # (AUTO) 0.2 K/uL (0-0.4); EOSINOPHILS % (AUTO) 2.3 % (0.0-4.0); HEMATOCRIT 37.3 % (36-52); HEMOGLOBIN 12.4 g/dL (12.0-18.0); LYMPHOCYTES # (AUTO) 1.1 K/uL (2.0-11.5); LYMPHOCYTES % (AUTO) 15.6 % (20.5-51.1); MEAN CORPUSCULAR HEMOGLOBIN 31 pg (27-31); MEAN CORPUSCULAR HGB CONC 33 g/dL (33-37); MEAN CORPUSCULAR VOLUME 92.1 fL (80-94); MONOCYTES # (AUTO) 0.5 K/uL (0.8-1.0); NEUTROPHILS # (AUTO) 5.3 K/uL (1.8-7.7); NEUTROPHILS % (AUTO) 74.5 % (42.2-75.2); PLATELET COUNT (AUTO) 287 K/uL (140-450); RED BLOOD CELL COUNT(AUTO) 4.05 MIL/uL (4.20-6.10); RED CELL DISTRIBUTION WIDTH 13.6 % (11.6-13.7); WHITE BLOOD COUNT (AUTO) 7.1 K/uL (4.8-10.8)
--- NOTE | 2021-12-25 10:43 | NUR ---
WALKED URINE SAMPLE TO LAB, HANDED TO YOVANI
[2021-12-25 10:48] LABS: APPEARANCE,URINE CLEAR (CLEAR); BILIRUBIN,URINE NEGATIVE (NEGATIVE); BLOOD, URINE TRACE-L (NEGATIVE); COLOR,URINE YELLOW (YELLOW); LEUKOCYTE ESTERASE ,URINE 1+ (NEGATIVE); NITRITE, URINE NEGATIVE (NEGATIVE); UGLUCOSE NEGATIVE (NEGATIVE)
[2021-12-25 10:52] LABS: ALBUMIN 3.5 g/dL (3.4-5.0); ANION GAP 13.9 (8-16); ASPARTATE AMINOTRANSFERASE 22 U/L (15-37); CARBON DIOXIDE 22.9 mmol/L (21-32); CHLORIDE 103 mmol/L (98-107); CREATININE 0.8 mg/dL (0.6-1.3); GLUCOSE 111 mg/dL (74-106); POTASSIUM 3.8 mmol/L (3.5-5.1); SODIUM SERUM 136 mmol/L (136-145); TOTAL BILIRUBIN 0.5 mg/dL (0.0-1.0); UREA NITROGEN, BLOOD 13 mg/dL (7-18)
--- NOTE | 2021-12-25 11:15 | NUR ---
DR. ROSSI BEDSIDE EVALUATING PT
[2021-12-25] MEDS ORDERED: ONDANSETRON 4 MG/2 ML VIAL IVP ONE (11:20)
[2021-12-25] MEDS ORDERED: LORazepam 0.5 MG TAB PO ONE (11:20)
[2021-12-25] MEDS ORDERED: NACL 0.9% 1,000 ML IV ONE (11:20)
[2021-12-25 11:25] LABS: CALCIUM OXALATE CRYSTALS,UR 0-10 /HPF (None Seen); OTHER CRYSTALS,URINE None Seen /HPF (None Seen); RBC,URINE 0-5 /HPF (0-5); TRICHOMONAS,URINE None Seen /HPF (None Seen); TRIPLE PHOSPHATE CRYSTAL,UR None Seen /HPF (None Seen); URIC ACID CRYSTALS,URINE None Seen /HPF (None Seen); URINE AMORPHOUS URATE None Seen /HPF (None Seen); WBC,URINE 0-5 /HPF (0-5); YEAST,URINE None Seen /HPF (None Seen)
[2021-12-25 11:26] LABS: COARSE GRANULAR CASTS,URINE None Seen /LPF (None Seen); FINE GRANULAR CASTS,URINE None Seen /LPF (None Seen); HYALINE CASTS, URINE None Seen /LPF (None Seen); OTHER CASTS, URINE None Seen /LPF (None Seen); RED BLOOD CELL CASTS,URINE None Seen /LPF (None Seen); WAXY CASTS,URINE None Seen /LPF (None Seen)
--- NOTE | 2021-12-25 12:12 | NUR ---
PT CONTINUES HAS URINATED X3 IN URINAL.
[2021-12-25] MEDS ORDERED: CEPH-588 PO (12:53)
[2021-12-25 13:20] VITALS: BP 153/82
[2021-12-28] MEDS ORDERED: [UNRECOGNIZED DRUG - CODE] PO (18:37)
--- NOTE | 2021-12-28 18:39 | NUR ---
LATE ENTRY. RECEIVED POSITIVE URINE CULTURE. DR DEVI SIGNED DISCREPANCY LOG AND SENT NEW RX OF BACTRIM DS BID X7 DAYS TO PTS PHARMACY. ATTEMPTED TO CALL PT TO INFORM HIM OF NEW RX, NO ANSWER AND WAS NOT ABLE TO LEAVE MESSAGE.
== END 2021-12-25 13:21 | disposition home or self-care (01) ==
LOC: MED 09:26
DX: N39.0 Urinary tract infection, site not specified (principal); F41.9 Anxiety disorder, unspecified; I10 Essential (primary) hypertension; Z86.69 Personal history of other diseases of the nervous system and sense organs; Z79.899 Other long term (current) drug therapy; Z79.2 Long term (current) use of antibiotics
CPT/HCPCS: 36415; 80053; 81001; 85025; 87086; 96361; 96374; 99283; J2405; J7030

== ENCOUNTER 2021-12-30 02:53 | Emergency (ER) | payer OTHER, MEDICAID ==
[~2021-12-30] VITALS: Ht 167.6 cm; Wt 66.2 kg
[~2021-12-30 02:53] MED LIST changes: +[UNRECOGNIZED DRUG - CODE] PO
[2021-12-30 03:01] VITALS: BP 142/79
--- NOTE | 2021-12-30 03:10 | NUR ---
Wheel chair to bed 9.
[2021-12-30] MEDS ORDERED: LORazepam 1 MG TAB PO ONE (03:15)
--- NOTE | 2021-12-30 03:28 | NUR ---
76 YO/M BIB FRIEND W C/O ANXIETY/PANIC D/T R HIP PAIN 02/14 PRESSURE, NON RAD, CONSTANT X1 MONTH. PT DENIES ANY INJURY, PT AMBULATORY W USE OF WALKER (BASELINE). PT LAYING IN BED LOCKED IN LOWEST POSITION W X1 SIDERAIL UP. BREATHING EVEN AND UNLABORED. WILL CONTINUE TO MONITOR. PMH: HTN, PARKINSONS, ANXIETY ALLERGIES: DENIES
[2021-12-30] MEDS ORDERED: HYDR-637 PO (03:36)
--- NOTE | 2021-12-30 03:44 | NUR ---
PT APPEARS TO BE RESTING W EYES CLOSED IN SUPINE POSITION. BREATHING EVEN AND UNLABORED, WILL CONTINUE TO MONITOR.
--- NOTE | 2021-12-30 03:47 | NUR ---
PT REPORTS FEELING BETTER, AND MORE CALM. PT REQUESTING ATIVAN PRESCRIPTION. ERMD AWARE.
--- NOTE | 2021-12-30 03:58 | NUR ---
PT PRESCRIBED HYDROXYZINE, PER PT ALREADY HAS PRESCRIPTION FOR HYDROXYZINE AND REPORTS THE MEDICATION MAKES HIM MORE ANXIOUS, AND WOULD LIKE ATIVAN PRESCRIBED. PER ERMYunior PT TO FOLLOW UP W PCP FOR ATIVAN PRESCRIPTION.
[2021-12-30 04:05] VITALS: BP 142/79
--- NOTE | 2021-12-30 04:05 | NUR ---
Patient discharged with v/s stable. Written and verbal after care instructions given and explained. Patient alert, oriented and verbalized understanding of instructions. Wheel Chair Assisted with by FRIEND. All questions addressed prior to discharge. ID band removed. Patient advised to follow up with PMD. Rx of HYDROXYZINE given. Patient educated on indication of medication including possible reaction and side effects. Opportunity to ask questions provided and answered.
== END 2021-12-30 04:05 | disposition home or self-care (01) ==
LOC: MED 02:53
DX: F41.9 Anxiety disorder, unspecified (principal); G20 Parkinson's disease; I10 Essential (primary) hypertension; Z79.899 Other long term (current) drug therapy
CPT/HCPCS: 99283

== ENCOUNTER 2022-01-01 06:47 | Emergency (ER) | payer OTHER, MEDICAID ==
[~2022-01-01] VITALS: Ht 165.1 cm; Wt 67.1 kg
[~2022-01-01 06:47] MED LIST changes: +HYDR-637 PO
[2022-01-01 06:50] VITALS: BP 151/77
--- NOTE | 2022-01-01 06:54 | NUR ---
PT W/C ASSISTED TO BED 1
--- NOTE | 2022-01-01 07:15 | NUR ---
DR. FLORES AT PT BEDSIDE
--- NOTE | 2022-01-01 07:16 | NUR ---
76 Y/O MALE BIB SELF C/O ABDOMINAL PAIN XLAST NIGHT.PAIN RADIATES THROUGHOUT THE R SIDE TO THE BACK. PT STATES HE HAS HAD NAUSEA, NO VOMITING. PT STATES HE HAS BEEN FEELING ANXIOUS. PT DENIES CHEST PAIN, SOB. PT DENIES TRAUMA. PMH: HTN,PANIC ATTACKS, ANXIETY, ENLARGED PROSTATE, PARKINSONS DISEASE MEDS: LISINOPRIL, CABIDOPA-LEVODOPA,MELOXICAM, OXYBUTYNIN, HYDROXYZINE, FERROUS SULFATE
[2022-01-01] MEDS ORDERED: LORazepam 0.5 MG TAB PO ONE (07:30)
[2022-01-01] MEDS ORDERED: KETOROLAC 30 MG/ML VIAL IM ONE (07:30)
--- NOTE | 2022-01-01 07:46 | NUR ---
URINE HANDED TO CREDIT REVIEW OFFICER
[2022-01-01 08:07] LABS: BASOPHILS % (AUTO) 0.4 % (0.0-2.0); EOSINOPHILS # (AUTO) 0.3 K/uL (0-0.4); EOSINOPHILS % (AUTO) 4.2 % (0.0-4.0); HEMATOCRIT 36.7 % (36-52); HEMOGLOBIN 12.2 g/dL (12.0-18.0); LYMPHOCYTES # (AUTO) 1.3 K/uL (2.0-11.5); LYMPHOCYTES % (AUTO) 18.5 % (20.5-51.1); MEAN CORPUSCULAR HEMOGLOBIN 31 pg (27-31); MEAN CORPUSCULAR HGB CONC 33 g/dL (33-37); MEAN CORPUSCULAR VOLUME 92.1 fL (80-94); MONOCYTES # (AUTO) 0.6 K/uL (0.8-1.0); MONOCYTES % (AUTO) 8.9 % (1.7-9.3); NEUTROPHILS # (AUTO) 4.9 K/uL (1.8-7.7); PLATELET COUNT (AUTO) 310 K/uL (140-450); RED BLOOD CELL COUNT(AUTO) 3.98 MIL/uL (4.20-6.10); RED CELL DISTRIBUTION WIDTH 13.2 % (11.6-13.7); WHITE BLOOD COUNT (AUTO) 7.2 K/uL (4.8-10.8)
[2022-01-01 08:30] LABS: APPEARANCE,URINE CLEAR (CLEAR); BILIRUBIN,URINE NEGATIVE (NEGATIVE); BLOOD, URINE NEGATIVE (NEGATIVE); COLOR,URINE YELLOW (YELLOW); LEUKOCYTE ESTERASE ,URINE NEGATIVE (NEGATIVE); NITRITE, URINE NEGATIVE (NEGATIVE); PH,URINE 7.5 (5.0-9.0); UGLUCOSE NEGATIVE (NEGATIVE)
[2022-01-01 08:43] LABS: ANION GAP 11.1 (8-16); CARBON DIOXIDE 26.3 mmol/L (21-32); CHLORIDE 102 mmol/L (98-107); CREATININE 0.7 mg/dL (0.6-1.3); GLUCOSE 103 mg/dL (74-106); POTASSIUM 3.4 mmol/L (3.5-5.1); SODIUM SERUM 136 mmol/L (136-145); UREA NITROGEN, BLOOD 13 mg/dL (7-18)
[2022-01-01 09:47] VITALS: BP 116/57
--- NOTE | 2022-01-01 09:48 | NUR ---
Patient discharged with v/s stable. Written and verbal after care instructions given and explained. Patient verbalized understanding. Ambulatory with steady gait. All questions addressed prior to discharge. Advised to follow up with PMD.
== END 2022-01-01 09:49 | disposition home or self-care (01) ==
LOC: MED 06:47
DX: F41.9 Anxiety disorder, unspecified (principal); R10.84 Generalized abdominal pain; M54.50 Low back pain, unspecified; M53.3 Sacrococcygeal disorders, not elsewhere classified; G89.29 Other chronic pain; R25.1 Tremor, unspecified; I10 Essential (primary) hypertension; Z98.890 Other specified postprocedural states; Z79.899 Other long term (current) drug therapy; Z79.2 Long term (current) use of antibiotics
CPT/HCPCS: 36415; 80048; 81003; 85025; 96372; 99283; J1885

== ENCOUNTER 2022-11-17 09:18 | Inpatient (IN) | payer OTHER, MEDICAID ==
[~2022-11-17] VITALS: Ht 154.9 cm; Wt 65.3 kg
[2022-11-17 09:36] VITALS: BP 134/73
--- NOTE | 2022-11-17 09:57 | NUR ---
PT AMBULATED WITH WALKER TO ER BED 6
--- NOTE | 2022-11-17 10:35 | NUR ---
77 y/o male bib for c/o generalized weakness x 1 month. Per patient weakness has been gradually worsening. Patient also reports peeing frequently. Patient denies any sick contacts or new foods. Reports subjective fever and pain to bilateral hips. Patient has been treating pain with Tylenol. Medical History: HTN, Anxiety NKDA
--- NOTE | 2022-11-17 11:08 | NUR ---
Dr. Ruiz evaluating patient at bedside.
[2022-11-17] MEDS ORDERED: KETOROLAC 30 MG/ML VIAL IVP ONE (11:10)
[2022-11-17] MEDS ORDERED: LORazepam 2 MG/ML VIAL IVP ONE (11:10)
[2022-11-17] MEDS ORDERED: ONDANSETRON 4 MG/2 ML VIAL IVP ONE (11:10)
--- NOTE | 2022-11-17 11:27 | NUR ---
Patient was taken to CT via [facility].
[2022-11-17 11:42] LABS: APPEARANCE,URINE CLEAR (CLEAR); BILIRUBIN,URINE NEGATIVE (NEGATIVE); BLOOD, URINE NEGATIVE (NEGATIVE); COLOR,URINE YELLOW (YELLOW); LEUKOCYTE ESTERASE ,URINE NEGATIVE (NEGATIVE); NITRITE, URINE NEGATIVE (NEGATIVE); UGLUCOSE NEGATIVE (NEGATIVE)
--- NOTE | 2022-11-17 11:45 | NUR ---
RETURN FROM CT
[2022-11-17 12:26] LABS: BASOPHILS % (AUTO) 0.5 % (0.0-2.0); EOSINOPHILS # (AUTO) 0.2 K/uL (0-0.4); EOSINOPHILS % (AUTO) 2.8 % (0.0-4.0); HEMATOCRIT 36.7 % (36-52); HEMOGLOBIN 12.3 g/dL (12.0-18.0); LYMPHOCYTES # (AUTO) 1.6 K/uL (2.0-11.5); LYMPHOCYTES % (AUTO) 25.1 % (20.5-51.1); MEAN CORPUSCULAR HEMOGLOBIN 31 pg (27-31); MEAN CORPUSCULAR HGB CONC 34 g/dL (33-37); MEAN CORPUSCULAR VOLUME 92.4 fL (80-94); MONOCYTES # (AUTO) 0.5 K/uL (0.8-1.0); MONOCYTES % (AUTO) 7.3 % (1.7-9.3); NEUTROPHILS # (AUTO) 4.1 K/uL (1.8-7.7); NEUTROPHILS % (AUTO) 64.3 % (42.2-75.2); PLATELET COUNT (AUTO) 297 K/uL (140-450); RED BLOOD CELL COUNT(AUTO) 3.98 MIL/uL (4.20-6.10); RED CELL DISTRIBUTION WIDTH 13.4 % (11.6-13.7); WHITE BLOOD COUNT (AUTO) 6.4 K/uL (4.8-10.8)
[2022-11-17 13:02] LABS: ALBUMIN 3.8 g/dL (3.4-5.0); ANION GAP 13.4 (8-16); ASPARTATE AMINOTRANSFERASE 16 U/L (15-37); CARBON DIOXIDE 25.1 mmol/L (21-32); CHLORIDE 103 mmol/L (98-107); CREATININE 0.7 mg/dL (0.6-1.3); GLUCOSE 99 mg/dL (74-106); LIPASE 171 U/L (73-393); POTASSIUM 3.5 mmol/L (3.5-5.1); SODIUM SERUM 138 mmol/L (136-145); TOTAL BILIRUBIN 0.5 mg/dL (0.0-1.0); UREA NITROGEN, BLOOD 15 mg/dL (7-18)
--- NOTE | 2022-11-17 14:10 | NUR ---
Patient was offered a snack.
--- NOTE | 2022-11-17 15:00 | NUR ---
Informed Jing, of patient, that patient will be hospitalzized. Med list was recieved.
[2022-11-17] MEDS ORDERED: AMLO5TAB PO (15:47)
[2022-11-17] MEDS ORDERED: PRAM0.5T4 PO (15:47)
[2022-11-17] MEDS ORDERED: FINA5TAB1 PO (15:47)
[2022-11-17] MEDS ORDERED: HYDR-1096 PO (15:47)
[2022-11-17] MEDS ORDERED: CARB1TAB37 PO (15:47)
[2022-11-17] MEDS ORDERED: OXYB5TAB44 PO (15:47)
[2022-11-17] MEDS ORDERED: NACL 0.9% 1,000 ML IV SCH (16:25)
--- NOTE | 2022-11-17 17:25 | NUR ---
Helped patient reposition himself in bed.
[2022-11-17] MEDS ORDERED: ONDANSETRON 4 MG/2 ML VIAL IVP PRN (18:00)
[2022-11-17] MEDS ORDERED: ACETAMINOPHEN 325 MG TAB PO PRN (18:00)
[2022-11-17] MEDS ORDERED: POTASSIUM CHLORIDE 10 MEQ TABER PO PRN (18:00)
[2022-11-17] MEDS ORDERED: MECLIZINE 25 MG TAB PO PRN (18:00)
[2022-11-17] MEDS ORDERED: MAG SULF 2000 MG/WATER PREMIX 50 ML IV PRN (18:00)
[2022-11-17 18:58] LABS: PROTHROMBIN TIME 10.4 secs (10.8-13.4)
[2022-11-17] MEDS: NACL 0.9% 1,000 ML IV SCH (19:08)
--- NOTE | 2022-11-17 19:21 | NUR ---
Report given to BOB Currie for transfer of care.
--- NOTE | 2022-11-17 19:51 | NUR ---
Report given to Arlen ROJAS
[2022-11-17 19:57] LABS: ANION GAP 11.1 (8-16); CARBON DIOXIDE 27.6 mmol/L (21-32); CHLORIDE 105 mmol/L (98-107); CREATININE 0.8 mg/dL (0.6-1.3); GLUCOSE 82 mg/dL (74-106); POTASSIUM 3.7 mmol/L (3.5-5.1); SODIUM SERUM 140 mmol/L (136-145); UREA NITROGEN, BLOOD 16 mg/dL (7-18)
[2022-11-17 20:15] LABS: AMYLASE 83 U/L (25-115); CHOL/HDL RATIO 2.2 (1-4.5); FREE T4 (FREE THYROXINE) 0.88 ng/dL (0.76-1.46); HDL CHOLESTEROL 85 mg/dL (40-60); LDL (CALC) 91 mg/dL (60-100); LIPASE 309 U/L (73-393); MAGNESIUM 2.2 mg/dL (1.8-2.4); PHOSPHORUS 3.7 mg/dL (2.5-4.9); TRIGLYCERIDES 53 mg/dL (30-150)
--- NOTE | 2022-11-17 20:22 | NUR ---
PATIENT WAS ADMITTED TO [facility] FROM ER VIA RNEY AWAKE ALERT ORIENTED X3. CC: GENERALIZED WEAKNESS. NO SOB NOTED ON ROOM AIR. IVF NS 50 ML/HR ON THE LEFT AC 20 GAUGE. SAFETY PRECAUTIONS ARE IN PLACE. CALL LIGHT WITHIN REACH. PATIENT CONFUSED AT TIMES.
[2022-11-17 20:35] LABS: THYROID STIMULATING HORMONE 1.32 uIU/mL (0.34-3.74)
[2022-11-17 20:48] LABS: BARBITURATE, URINE NEGATIVE ng/ml (NEG <=200); BENZODIAZEPINE, URINE NEGATIVE ng/mL (NEG <=200); CANNABINOID, URINE NEGATIVE ng/mL (NEG <=50); COCAINE, URINE NEGATIVE ng/mL (NEG <=300); OPIATE, URINE NEGATIVE ng/mL (NEG <=2000); PHENCYCLIDINE SCREEN,URINE NEGATIVE ng/mL (NEG <=25)
[2022-11-17] MEDS: DOCUSATE SODIUM 100 MG GELCAP PO SCH (21:00)
--- NOTE | 2022-11-17 22:40 | NUR ---
ADMINISTERED MEDICATIONS ORDERED.
[2022-11-18] VITALS: BP 119/59
[2022-11-18] MEDS: HYDROcodone/APAP 7.5/325 MG 1 TAB PO PRN (04:16)
--- NOTE | 2022-11-18 04:22 | NUR ---
PATIENT COMPLAINED OF MODERATE PAIN, MEDICATED ORDERED.
[2022-11-18 05:18] VITALS: BP 128/70
--- NOTE | 2022-11-18 07:09 | NUR ---
receive the patient from the awake overnight counselor rn in rm 112A [id number] with admitting diagnosis of generalized weakness . will continue to monitor
[2022-11-18 07:10] LABS: BASOPHILS % (AUTO) 0.4 % (0.0-2.0); EOSINOPHILS # (AUTO) 0.3 K/uL (0-0.4); EOSINOPHILS % (AUTO) 4.2 % (0.0-4.0); HEMATOCRIT 35.2 % (36-52); HEMOGLOBIN 11.8 g/dL (12.0-18.0); LYMPHOCYTES # (AUTO) 1.7 K/uL (2.0-11.5); LYMPHOCYTES % (AUTO) 25.7 % (20.5-51.1); MEAN CORPUSCULAR HEMOGLOBIN 31 pg (27-31); MEAN CORPUSCULAR HGB CONC 34 g/dL (33-37); MEAN CORPUSCULAR VOLUME 92.7 fL (80-94); MONOCYTES # (AUTO) 0.6 K/uL (0.8-1.0); MONOCYTES % (AUTO) 9.3 % (1.7-9.3); NEUTROPHILS # (AUTO) 4.1 K/uL (1.8-7.7); NEUTROPHILS % (AUTO) 60.4 % (42.2-75.2); PLATELET COUNT (AUTO) 292 K/uL (140-450); RED CELL DISTRIBUTION WIDTH 13.5 % (11.6-13.7); WHITE BLOOD COUNT (AUTO) 6.7 K/uL (4.8-10.8)
[2022-11-18 07:14] LABS: ANION GAP 11.6 (8-16); CARBON DIOXIDE 26.9 mmol/L (21-32); CHLORIDE 103 mmol/L (98-107); CREATININE 0.8 mg/dL (0.6-1.3); GLUCOSE 89 mg/dL (74-106); POTASSIUM 3.5 mmol/L (3.5-5.1); SODIUM SERUM 138 mmol/L (136-145); UREA NITROGEN, BLOOD 18 mg/dL (7-18)
[2022-11-18 07:25] LABS: PHOSPHORUS 3.3 mg/dL (2.5-4.9)
--- NOTE | 2022-11-18 07:27 | NUR ---
ENDORSED PATIENT TO AM SHIFT NURSE FOR CONTINUITY OF CARE. PT STABLE.
[2022-11-18 08:00] VITALS: BP 132/74
[2022-11-18] MEDS: PRAMIPEXOLE 0.5 MG TAB PO SCH (08:26)
[2022-11-18] MEDS: CARBIDOPA/LEVODOPA 25/100 MG 1 TAB PO SCH (08:26)
[2022-11-18] MEDS: amLODIPine 5 MG TAB PO SCH (08:26)
[2022-11-18] MEDS: DOCUSATE SODIUM 100 MG GELCAP PO SCH ×2 (08:26→21:04)
[2022-11-18] MEDS: OXYBUTYNIN 5 MG TAB PO SCH (08:26)
[2022-11-18] MEDS: HYDROXYZINE HYDROCHLORIDE 25 MG TAB PO SCH (08:26)
[2022-11-18] MEDS: PANTOPRAZOLE 40 MG INJ VIAL IVP SCH (08:27)
[2022-11-18] MEDS: FINASTERIDE 5 MG TAB PO SCH (08:31)
[2022-11-18] MEDS ORDERED: HYDROXYZINE HCL 25 MG PO SCH (09:00)
--- NOTE | 2022-11-18 09:12 | NUR ---
PATIENT HAS BEEN SCREENED AND CATEGORIZED LOW NUTRITION RISK. PATIENT WILL BE SEEN WITHIN 7 DAYS OF ADMISSION. 11/24/22 REVIEWED BY OMARI RODRIGUEZ RD
--- NOTE | 2022-11-18 11:15 | NUR ---
DC PLANNING ATTEMPTED TO MEET PT AT BEDSIDE TO COMPLETE ASSESSMENT HOWEVER, PT BEING SEEN BY DELIVERY DRIVER/CUSTOMER SERVICE. SW TO FOLLOW
[2022-11-18 12:00] VITALS: BP 103/63
[2022-11-18 16:00] VITALS: BP 104/57
[2022-11-18] MEDS: NACL 0.9% 1,000 ML IV SCH (16:26)
--- NOTE | 2022-11-18 18:39 | NUR ---
will endorse to overnight associate rn for continuity of care
[2022-11-18 20:00] VITALS: BP 116/68
--- NOTE | 2022-11-18 21:04 | NUR ---
SCHEDULED MEDICATIONS DUE ADMINISTERED.
[2022-11-19] VITALS: BP 129/63
[2022-11-19] MEDS: HYDROcodone/APAP 7.5/325 MG 1 TAB PO PRN (03:32)
[2022-11-19 04:00] VITALS: BP 133/61
--- NOTE | 2022-11-19 06:18 | NUR ---
PATIENT COMPLAINED OF DIZZINESS, MEDICATED ORDERED.
--- NOTE | 2022-11-19 07:09 | NUR ---
receive the patient from the rn shift mgr in rm 112A with admitting diagnosis fo generalized weakness . will continue to monitor
--- NOTE | 2022-11-19 07:23 | NUR ---
ENDORSED PATIENT TO MORNING SHIFT NURSE FOR CONTINUITY OF CARE.
[2022-11-19 07:34] LABS: ANION GAP 10.1 (8-16); CARBON DIOXIDE 26.4 mmol/L (21-32); CHLORIDE 103 mmol/L (98-107); GLUCOSE 94 mg/dL (74-106); POTASSIUM 3.5 mmol/L (3.5-5.1); SODIUM SERUM 136 mmol/L (136-145); UREA NITROGEN, BLOOD 21 mg/dL (7-18)
[2022-11-19 07:52] LABS: MAGNESIUM 1.9 mg/dL (1.8-2.4); PHOSPHORUS 3.2 mg/dL (2.5-4.9)
[2022-11-19 08:00] VITALS: BP 156/67
[2022-11-19] MEDS: PRAMIPEXOLE 0.5 MG TAB PO SCH (09:21)
[2022-11-19] MEDS: HYDROXYZINE HYDROCHLORIDE 25 MG TAB PO SCH (09:21)
[2022-11-19] MEDS: CARBIDOPA/LEVODOPA 25/100 MG 1 TAB PO SCH (09:21)
[2022-11-19] MEDS: amLODIPine 5 MG TAB PO SCH (09:21)
[2022-11-19] MEDS: FINASTERIDE 5 MG TAB PO SCH (09:22)
[2022-11-19] MEDS: OXYBUTYNIN 5 MG TAB PO SCH (09:22)
[2022-11-19] MEDS: DOCUSATE SODIUM 100 MG GELCAP PO SCH (09:22)
[2022-11-19] MEDS: PANTOPRAZOLE 40 MG INJ VIAL IVP SCH (09:22)
[2022-11-19] MEDS: NACL 0.9% 1,000 ML IV SCH (09:41)
[2022-11-19] MEDS ORDERED: CEPH-588 PO (11:54)
[2022-11-19 12:00] VITALS: BP 117/69
--- NOTE | 2022-11-19 15:19 | NUR ---
PAT BOTELLO RECEIVED ORDER FOR PT TO GOT TO SNF FOR PHYSICAL THERAPY. FAXED TO THE FOLLOWING FACILITIES: [facility], [facility], [facility] AND [facility]. RECEIVED CALL FROM MALLORY AT [facility] LOCATED AT [address] [facility] [facility] [address]. PT WAS ACCEPTED AND WILL BE GOING TO ROOM 28-B UNDER THE CARE OF DR AL. AUTH#[id number] GIVEN BY ESTELA AT [facility] PHYSICIAN [id number]. [facility] SET UP WITH REVA AT [facility] WITH A [phone] DRUG ABUSE TECHNICIAN TIME. NURSE AND PT AWARE OF THE ABOVE INFORMATION. Addendum: 11/19/22 at 1650 by JUDY LARA USED TRANSLATION LINE CÉSAR ID#[id number] TO CALL PT AND CONFIRM WITH HER IF SNF IS OKAY AND INFORM HER ON WHAT WAS GOING ON PER PT AROUND 1100. SHE DIDN'T ANSWER UNIFORATELY. BUT I WENT TO BEDSIDE AND WAS THERE, WAS ABLE TO USE BEDSIDE SODA JERKER STEEV NARAYANAN ID#[id number] TO EXPLAIN THAT RECOMMENDS SNF AND TO INFORM THEM OF [facility] ACCEPTING PT. AND PT WERE BOTH PLEASED. GAVE THEM NAME, ADDRESS AND CONTACT INFORMATION.
[2022-11-19 16:00] VITALS: BP 109/52
--- NOTE | 2022-11-19 16:40 | NUR ---
gave report to Maynor trivedi in [place] [phone] .
--- NOTE | 2022-11-19 18:54 | NUR ---
coal picker by the EMT to roque diallo in a stable condition . no complain of pain at this time . no sign and symptoms of pain . will continue to monitor
== END 2022-11-19 18:40 | DRG 74 ==
LOC: MED 09:18 → MTU 14:41 → UNDOADMIN 16:22 → MTU 16:22
DX: G90.9 Disorder of the autonomic nervous system, unspecified (principal); J98.11 Atelectasis; K59.00 Constipation, unspecified; G20 Parkinson's disease; N28.1 Cyst of kidney, acquired; M85.80 Other specified disorders of bone density and structure, unspecified site; M47.896 Other spondylosis, lumbar region; I10 Essential (primary) hypertension; N40.0 Benign prostatic hyperplasia without lower urinary tract symptoms; Z20.822 Contact with and (suspected) exposure to COVID-19
CPT/HCPCS: 36415; 71045; 80048; 80053; 80305; 81003; 82140; 82150; 83036; 83605; 83690; 83735; 83880; 84100; 84439; 84443; 84484; 85025; 85610; 85730; 87040; 87081; 93005; 93880; 96361; 96374; 96375; 97112; 97116; 97163-GP; 97530; 99285; C9113; J1644; J1885; J2060; J2405; J8597; Q0092

== ENCOUNTER 2023-01-17 08:38 | Emergency (ER) | payer OTHER, MEDICAID ==
[~2023-01-17] VITALS: Ht 170.2 cm; Wt 65.3 kg
[~2023-01-17 08:38] MED LIST changes: +AMLO5TAB PO; -ATA25 PO; -AZIT250T3 PO; -CLON0.2T16 PO; +FINA5TAB1 PO; +HYDR-1096 PO; -HYDR-637 PO; -LISI20TA29 PO; -MIRA25TE PO; +OXYB5TAB44 PO; -[UNRECOGNIZED DRUG - CODE] PO
[2023-01-17 08:39] VITALS: BP 141/81
[2023-01-17] MEDS ORDERED: NACL 0.9% 1,000 ML IV SCH (08:55)
[2023-01-17 09:13] LABS: BASOPHILS % (AUTO) 0.6 % (0.0-2.0); EOSINOPHILS # (AUTO) 0.2 K/uL (0-0.4); EOSINOPHILS % (AUTO) 3.6 % (0.0-4.0); HEMATOCRIT 40.3 % (36-52); HEMOGLOBIN 13.3 g/dL (12.0-18.0); LYMPHOCYTES # (AUTO) 1.8 K/uL (2.0-11.5); LYMPHOCYTES % (AUTO) 28.4 % (20.5-51.1); MEAN CORPUSCULAR HEMOGLOBIN 31 pg (27-31); MEAN CORPUSCULAR HGB CONC 33 g/dL (33-37); MEAN CORPUSCULAR VOLUME 92.1 fL (80-94); MONOCYTES # (AUTO) 0.5 K/uL (0.8-1.0); MONOCYTES % (AUTO) 8.3 % (1.7-9.3); NEUTROPHILS # (AUTO) 3.8 K/uL (1.8-7.7); NEUTROPHILS % (AUTO) 59.1 % (42.2-75.2); PLATELET COUNT (AUTO) 343 K/uL (140-450); RED BLOOD CELL COUNT(AUTO) 4.38 MIL/uL (4.20-6.10); RED CELL DISTRIBUTION WIDTH 13.3 % (11.6-13.7); WHITE BLOOD COUNT (AUTO) 6.4 K/uL (4.8-10.8)
--- NOTE | 2023-01-17 09:14 | NUR ---
X-Ray at bedside.
[2023-01-17 09:27] LABS: ALBUMIN 3.8 g/dL (3.4-5.0); ANION GAP 8.8 (8-16); ASPARTATE AMINOTRANSFERASE 20 U/L (15-37); CARBON DIOXIDE 27.9 mmol/L (21-32); CHLORIDE 106 mmol/L (98-107); CREATININE 0.8 mg/dL (0.6-1.3); GLUCOSE 121 mg/dL (74-106); PHOSPHORUS 3.5 mg/dL (2.5-4.9); POTASSIUM 3.7 mmol/L (3.5-5.1); SODIUM SERUM 139 mmol/L (136-145); TOTAL BILIRUBIN 0.6 mg/dL (0.0-1.0); UREA NITROGEN, BLOOD 14 mg/dL (7-18)
[2023-01-17 10:18] LABS: APPEARANCE,URINE CLEAR (CLEAR); BILIRUBIN,URINE NEGATIVE (NEGATIVE); BLOOD, URINE NEGATIVE (NEGATIVE); COLOR,URINE YELLOW (YELLOW); LEUKOCYTE ESTERASE ,URINE NEGATIVE (NEGATIVE); NITRITE, URINE NEGATIVE (NEGATIVE); UGLUCOSE NEGATIVE (NEGATIVE)
--- NOTE | 2023-01-17 10:53 | NUR ---
PATIENT RESTING COMFORTABLE IN BED. RESPIRATORY RATE 17 NO SIGNS OF RESPIRTORY DISTRESS O2 SAT 95%. BP 169/90. TEMP 98.6
--- NOTE | 2023-01-17 12:20 | NUR ---
IV removed, catheter intact and site benign. Applied folded 4x4 gauze and tape to stop bleeding.
[2023-01-17 12:33] VITALS: BP 152/90
== END 2023-01-17 12:33 | disposition home or self-care (01) ==
LOC: MED 08:38
DX: R53.1 Weakness (principal); Z20.822 Contact with and (suspected) exposure to COVID-19; I10 Essential (primary) hypertension; Z79.899 Other long term (current) drug therapy
CPT/HCPCS: 36415; 71045; 80053; 81003; 82550; 83605; 83735; 84100; 84484; 85025; 87040; 87426; 87804; 93005; 96360; 99285; Q0092; J7030

== ENCOUNTER 2023-04-08 12:58 | Inpatient (IN) | payer OTHER, MEDICAID ==
[~2023-04-08] VITALS: Ht 160 cm; Wt 64.9 kg
[2023-04-08 13:20] VITALS: BP 142/69; PULSE 77; RESP 18; TEMP 98.6; O2SAT 94
[2023-04-08 15:04] LABS: BASOPHILS # (AUTO) 0.1 K/uL (0.00-0.22); BASOPHILS % (AUTO) 0.9 % (0.0-2.0); EOSINOPHILS # (AUTO) 0.4 K/uL (0-0.4); EOSINOPHILS % (AUTO) 5.7 % (0.0-4.0); HEMATOCRIT 37.4 % (36-52); HEMOGLOBIN 12.5 g/dL (12.0-18.0); LYMPHOCYTES # (AUTO) 1.7 K/uL (2.0-11.5); MEAN CORPUSCULAR HEMOGLOBIN 31 pg (27-31); MEAN CORPUSCULAR HGB CONC 33 g/dL (33-37); MEAN CORPUSCULAR VOLUME 91.8 fL (80-94); MONOCYTES # (AUTO) 0.8 K/uL (0.8-1.0); MONOCYTES % (AUTO) 11.7 % (1.7-9.3); NEUTROPHILS # (AUTO) 3.9 K/uL (1.8-7.7); NEUTROPHILS % (AUTO) 56.7 % (42.2-75.2); PLATELET COUNT (AUTO) 311 K/uL (140-450); RED BLOOD CELL COUNT(AUTO) 4.07 MIL/uL (4.20-6.10); RED CELL DISTRIBUTION WIDTH 13.7 % (11.6-13.7); WHITE BLOOD COUNT (AUTO) 6.9 K/uL (4.8-10.8)
[2023-04-08] MEDS ORDERED: cefTRIAXone 1,000 MG VIAL ONE ×2 (15:07→15:46)
[2023-04-08 15:19] LABS: ALANINE AMINOTRANSFERASE 20 U/L (12-78); ALBUMIN 3.3 g/dL (3.4-5.0); ALKALINE PHOSPHATASE 95 U/L (50-136); ANION GAP 11.5 (8-16); ASPARTATE AMINOTRANSFERASE 18 U/L (15-37); CALCIUM 8.6 mg/dL (8.5-10.1); CARBON DIOXIDE 29.2 mmol/L (21-32); CHLORIDE 105 mmol/L (98-107); CREATININE 0.9 mg/dL (0.6-1.3); GLUCOSE 92 mg/dL (74-106); LIPASE 108 U/L (73-393); POTASSIUM 3.7 mmol/L (3.5-5.1); SODIUM SERUM 142 mmol/L (136-145); TOTAL BILIRUBIN 0.5 mg/dL (0.0-1.0); TOTAL PROTEIN, SERUM 7.3 g/dL (6.4-8.2); UREA NITROGEN, BLOOD 18 mg/dL (7-18)
[2023-04-08 15:20] LABS: LACTIC ACID 0.9 mmol/L (0.4-2.0)
[2023-04-08] MEDS ORDERED: METO25TE2 PO (16:05)
[2023-04-08 16:06] LABS: APPEARANCE,URINE CLOUDY (CLEAR); BILIRUBIN,URINE NEGATIVE (NEGATIVE); BLOOD, URINE 3+ (NEGATIVE); COLOR,URINE YELLOW (YELLOW); LEUKOCYTE ESTERASE ,URINE 3+ (NEGATIVE); NITRITE, URINE NEGATIVE (NEGATIVE); PROTEIN,URINE 1+ (NEGATIVE); UGLUCOSE NEGATIVE (NEGATIVE); UROBILINOGEN,URINE 0.2 EU/dL (0.2 - 1)
[2023-04-08 16:08] LABS: RBC,URINE 80-100 /HPF (0-5); WBC,URINE 80-100 /HPF (0-5)
[2023-04-08 16:09] LABS: BACTERIA,URINE 2+ /HPF (None Seen); MUCUS,URINE 1+ /LPF (None Seen); SQUAMOUS EPITHELIAL CELL,UR 4-10 (MOD) /LPF (0-3 (FEW)); TRICHOMONAS,URINE None Seen /HPF (None Seen); YEAST,URINE None Seen /HPF (None Seen)
[2023-04-08] MEDS ORDERED: NACL 0.9% 1,000 ML IV ONE (16:45)
[2023-04-08] MEDS ORDERED: NACL 0.9% 500 ML IV ONE (17:00)
[2023-04-08 20:40] VITALS: BP 122/75; PULSE 70; PULSE 86; RESP 18; TEMP 98; O2SAT 97
[2023-04-08] MEDS ORDERED: MELATONIN 3 MG TAB PO ONE (22:50)
[2023-04-09] MEDS ORDERED: MELATONIN 3 MG TAB ONE (01:09)
[2023-04-09] MEDS ORDERED: LORazepam 2 MG/ML VIAL IM/IVP STA (03:00)
[2023-04-09 03:30] VITALS: BP 130/78; PULSE 86; RESP 18; TEMP 98.5; O2SAT 97
[2023-04-09 06:58] LABS: MAGNESIUM 2.1 mg/dL (1.8-2.4)
[2023-04-09 08:00] VITALS: BP 143/70; PULSE 59; RESP 18; TEMP 96.9; TEMP 98.5; O2SAT 99
[2023-04-09] MEDS: amLODIPine 5 MG TAB PO SCH (08:53)
[2023-04-09 12:08] LABS: HEPATITIS A ANTIBODY IGM Negative (Negative); HEPATITIS B CORE AB TOTAL Negative (Negative); HEPATITIS B CORE, IGM Negative (Negative); HEPATITIS B SURFACE ANTIBODY Non Reactive (.); HEPATITIS B SURFACE ANTIGEN Negative (Negative); HEPATITIS C VIRUS ANTIBODY Non Reactive (Non Reactive)
[2023-04-09] MEDS: NACL 0.9% 1,000 ML IV SCH ×2 (13:00→21:52)
[2023-04-09 15:03] LABS: HEPATITIS A ANTIBODY TOTAL Positive (Negative)
[2023-04-09 16:00] VITALS: BP 137/59; PULSE 72; RESP 18; TEMP 97.1; O2SAT 98
[2023-04-09 20:00] VITALS: BP 132/62; PULSE 62; RESP 18; TEMP 98; O2SAT 98
[2023-04-09] MEDS: traZODone 50 MG TAB PO SCH (20:22)
[2023-04-10 04:00] VITALS: BP 143/68; PULSE 61; RESP 18; TEMP 97.3; O2SAT 97
[2023-04-10] MEDS: NACL 0.9% 1,000 ML IV SCH (07:40)
[2023-04-10 07:57] VITALS: PULSE 65
[2023-04-10 07:58] VITALS: TEMP 97.8
[2023-04-10 08:00] VITALS: PULSE 60; RESP 18; O2SAT 93
[2023-04-10 08:20] LABS: BASOPHILS % (AUTO) 0.3 % (0.0-2.0); EOSINOPHILS # (AUTO) 0.5 K/uL (0-0.4); HEMATOCRIT 37.4 % (36-52); HEMOGLOBIN 12.6 g/dL (12.0-18.0); LYMPHOCYTES # (AUTO) 1.8 K/uL (2.0-11.5); LYMPHOCYTES % (AUTO) 23.3 % (20.5-51.1); MEAN CORPUSCULAR HEMOGLOBIN 31 pg (27-31); MEAN CORPUSCULAR HGB CONC 34 g/dL (33-37); MEAN CORPUSCULAR VOLUME 92.1 fL (80-94); MONOCYTES # (AUTO) 0.6 K/uL (0.8-1.0); MONOCYTES % (AUTO) 8.1 % (1.7-9.3); NEUTROPHILS # (AUTO) 4.9 K/uL (1.8-7.7); NEUTROPHILS % (AUTO) 62.3 % (42.2-75.2); PLATELET COUNT (AUTO) 308 K/uL (140-450); RED BLOOD CELL COUNT(AUTO) 4.07 MIL/uL (4.20-6.10); WHITE BLOOD COUNT (AUTO) 7.8 K/uL (4.8-10.8)
[2023-04-10 08:32] LABS: ALANINE AMINOTRANSFERASE 17 U/L (12-78); ALBUMIN 3.1 g/dL (3.4-5.0); ALKALINE PHOSPHATASE 87 U/L (50-136); ANION GAP 10.1 (8-16); ASPARTATE AMINOTRANSFERASE 17 U/L (15-37); CALCIUM 7.9 mg/dL (8.5-10.1); CARBON DIOXIDE 25.5 mmol/L (21-32); CHLORIDE 107 mmol/L (98-107); CREATININE 0.6 mg/dL (0.6-1.3); GLUCOSE 90 mg/dL (74-106); POTASSIUM 3.6 mmol/L (3.5-5.1); SODIUM SERUM 139 mmol/L (136-145); TOTAL BILIRUBIN 0.6 mg/dL (0.0-1.0); UREA NITROGEN, BLOOD 15 mg/dL (7-18)
[2023-04-10] MEDS: traZODone 50 MG TAB PO SCH (08:40)
[2023-04-10] MEDS: amLODIPine 5 MG TAB PO SCH (08:41)
[2023-04-10] MEDS ORDERED: LEVO750T75 PO (09:05)
[2023-04-10] MEDS ORDERED: LACT500C2 PO (09:05)
[2023-04-11] MEDS ORDERED: ACET-5634 PO (16:30)
[2023-04-11] MEDS ORDERED: ACET-5629 PO (16:36)
== END 2023-04-10 13:10 | disposition home or self-care (01) | DRG 690 ==
LOC: MED 12:58 → MMU 18:20 → MTU 19:32
PROVIDERS: ADMIT Student in an Organized Health Care Education/Training Program; ATTEND Student in an Organized Health Care Education/Training Program
DX: N39.0 Urinary tract infection, site not specified (principal); M48.56XA Collapsed vertebra, not elsewhere classified, lumbar region, initial encounter for fracture; J98.11 Atelectasis; E46 Unspecified protein-calorie malnutrition; R07.89 Other chest pain; G20 Parkinson's disease; M85.80 Other specified disorders of bone density and structure, unspecified site; M47.896 Other spondylosis, lumbar region; I10 Essential (primary) hypertension; N40.0 Benign prostatic hyperplasia without lower urinary tract symptoms
CPT/HCPCS: 36415; 70450; 71045; 80053; 81001; 82140; 83605; 83690; 83735; 84100; 84484; 85025; 85379; 86704; 86706; 86708; 86709; 86803; 86886; 86900; 86901; 87040; 87081; 87086; 87340; 93005; 96361; 96374; 97112; 97116; 99285; J0696; J2060; J7060; Q0092

== ENCOUNTER 2023-04-11 13:51 | Emergency (ER) | payer OTHER, MEDICAID ==
[~2023-04-11] VITALS: Ht 170.2 cm; Wt 65.3 kg
[~2023-04-11 13:51] MED LIST changes: -CEPH-588 PO; -HYDR-1096 PO; +LACT500C2 PO; +LEVO750T75 PO; +METO25TE2 PO
[2023-04-11 14:11] VITALS: BP 123/75; PULSE 88; RESP 20; TEMP 98.6; O2SAT 92
[2023-04-11 15:25] VITALS: O2SAT 92
--- NOTE | 2023-04-11 15:25 | NUR ---
77YO MALE C/O PENILE PAIN X3DAYS. PT RECENTLY SEEN, DX UTI AND D/C W BARRIOS PLACEMENT. REPORTS PAIN ONSET SINCE PLACEMENT. DENIES N/V/D, FEVER, CHILLS OR RELIEF AFTER TYLENOL. PT AAOX4, HOB POSITIONED PER COMFORT. CALL LIGHT WITHIN REACH HX: BPH, PARKINSONS, ANXIETY, HTN NKA
[2023-04-11] MEDS ORDERED: HYDROcodone/APAP 5/325 MG 1 TAB TAB PO ONE (15:50)
[2023-04-11] MEDS ORDERED: ACET-5634 PO (16:30)
[2023-04-11] MEDS ORDERED: ACET-5629 PO (16:36)
--- NOTE | 2023-04-11 16:45 | NUR ---
pt c/o increased anxiety. made aware
[2023-04-11] MEDS ORDERED: LORazepam 1 MG TAB PO ONE (17:05)
[2023-04-11 17:27] VITALS: BP 124/74; PULSE 80; RESP 20; TEMP 98.6; O2SAT 97
--- NOTE | 2023-04-11 18:08 | NUR ---
Patient discharged with v/s stable. Written and verbal after care instructions FOR UTI AND CATH CARE given and explained. Patient alert, oriented and verbalized understanding of instructions. Wheel Chair Assisted with to car. All questions addressed prior to discharge. ID band removed. Patient advised to follow up with PMD. Rx of PERCOCET given. Opportunity to ask questions provided and answered.
--- NOTE | 2023-04-11 18:09 | NUR ---
The patient's care was reviewed and supervised by ROB MORALES RN.
== END 2023-04-11 18:08 | disposition home or self-care (01) ==
LOC: MED 13:51
DX: T83.518A Infection and inflammatory reaction due to other urinary catheter, initial encounter (principal); F41.9 Anxiety disorder, unspecified; Z79.899 Other long term (current) drug therapy
CPT/HCPCS: 99283

== ENCOUNTER 2023-11-18 13:55 | Emergency (ER) | payer OTHER, MEDICAID ==
[~2023-11-18] VITALS: Ht 167.6 cm; Wt 62.8 kg
[~2023-11-18 13:55] MED LIST changes: +ACET-5629 PO; +FINA-54 PO; -FINA5TAB1 PO
[2023-11-18 14:06] VITALS: BP 143/81; PULSE 68; RESP 17; TEMP 98.9; O2SAT 96
[2023-11-18] MEDS: ACETAMINOPHEN 325 MG TAB PO ONE (15:19)
[2023-11-18 15:34] LABS: BASOPHILS % (AUTO) 0.3 % (0.0-2.0); EOSINOPHILS # (AUTO) 0.4 K/uL (0-0.4); EOSINOPHILS % (AUTO) 6.1 % (0.0-4.0); HEMATOCRIT 37.5 % (36-52); HEMOGLOBIN 12.8 g/dL (12.0-18.0); LYMPHOCYTES # (AUTO) 1.7 K/uL (2.0-11.5); LYMPHOCYTES % (AUTO) 25.6 % (20.5-51.1); MEAN CORPUSCULAR HEMOGLOBIN 32 pg (27-31); MEAN CORPUSCULAR HGB CONC 34 g/dL (33-37); MEAN CORPUSCULAR VOLUME 93.4 fL (80-94); MONOCYTES # (AUTO) 0.5 K/uL (0.8-1.0); MONOCYTES % (AUTO) 7.8 % (1.7-9.3); NEUTROPHILS # (AUTO) 4.1 K/uL (1.8-7.7); NEUTROPHILS % (AUTO) 60.2 % (42.2-75.2); PLATELET COUNT (AUTO) 245 K/uL (140-450); RED BLOOD CELL COUNT(AUTO) 4.02 MIL/uL (4.20-6.10); RED CELL DISTRIBUTION WIDTH 13.9 % (11.6-13.7); WHITE BLOOD COUNT (AUTO) 6.8 K/uL (4.8-10.8)
[2023-11-18 15:50] VITALS: O2SAT 96
[2023-11-18 16:20] LABS: ANION GAP 12.7 (8-16); CALCIUM 8.4 mg/dL (8.5-10.1); CARBON DIOXIDE 28.4 mmol/L (21-32); CHLORIDE 107 mmol/L (98-107); CREATININE 0.7 mg/dL (0.6-1.3); GLUCOSE 119 mg/dL (74-106); POTASSIUM 4.1 mmol/L (3.5-5.1); SODIUM SERUM 144 mmol/L (136-145); UREA NITROGEN, BLOOD 14 mg/dL (7-18)
[2023-11-18 16:24] LABS: ALANINE AMINOTRANSFERASE 23 U/L (12-78); ALBUMIN 3.5 g/dL (3.4-5.0); ALKALINE PHOSPHATASE 87 U/L (50-136); ASPARTATE AMINOTRANSFERASE 13 U/L (15-37); BILIRUBIN,DIRECT 0.1 mg/dL (0.0-0.3); FREE T4 (FREE THYROXINE) 0.78 ng/dL (0.76-1.46); THYROID STIMULATING HORMONE 0.91 uIU/mL (0.34-3.74); TOTAL BILIRUBIN 0.5 mg/dL (0.0-1.0); TOTAL PROTEIN, SERUM 7.6 g/dL (6.4-8.2)
[2023-11-18] MEDS: LORazepam 0.5 MG TAB PO ONE (16:29)
[2023-11-18 19:00] VITALS: BP 132/82; PULSE 78; RESP 16; TEMP 98; O2SAT 98
== END 2023-11-18 19:00 | disposition home or self-care (01) ==
LOC: MED 13:55
DX: R53.1 Weakness (principal); G20.A1 Parkinson's disease without dyskinesia, without mention of fluctuations; I10 Essential (primary) hypertension; Z79.899 Other long term (current) drug therapy
CPT/HCPCS: 36415; 80048; 80076; 81002; 84439; 84443; 84484; 85025; 93005; 99284

== ENCOUNTER 2024-03-02 10:05 | Emergency (ER) | payer OTHER, MEDICAID ==
[~2024-03-02] VITALS: Ht 170.2 cm; Wt 63.2 kg
[~2024-03-02 10:05] MED LIST changes: +LACT1CAP67 PO; -LACT500C2 PO; +PRAM0.5T34 PO; -PRAM0.5T4 PO
[2024-03-02 10:32] VITALS: BP 119/65; PULSE 83; RESP 16; TEMP 98.3; O2SAT 95
[2024-03-02] MEDS: HYDROcodone/APAP 5/325 MG 1 TAB TAB PO ONE (13:33)
[2024-03-02] MEDS ORDERED: ACET-2619 PO (13:47)
[2024-03-02] MEDS ORDERED: LIDO5TDM45 TP (13:47)
[2024-03-02 13:53] VITALS: BP 120/66; PULSE 88; RESP 16; TEMP 98.3; O2SAT 95
== END 2024-03-02 13:53 | disposition home or self-care (01) ==
LOC: MED 10:05
DX: G89.29 Other chronic pain (principal); M54.50 Low back pain, unspecified; I10 Essential (primary) hypertension; Z79.1 Long term (current) use of non-steroidal anti-inflammatories (NSAID); Z79.2 Long term (current) use of antibiotics; Z79.899 Other long term (current) drug therapy
CPT/HCPCS: 72100; 99283